=== PATIENT | male | born 1960 | race Caucasian/White ===

== ENCOUNTER 2021-05-05 11:03 | Inpatient (IN) | payer SELFPAY ==
[2021-05-05] MEDS ORDERED: Sodium Chloride 0.9% 10 ML Syringe FLUSH PRN ×2 (11:34→13:17)
[2021-05-05] MEDS ORDERED: Sodium Chloride 0.9% 1,000 ML IV ONE (11:35)
[2021-05-05] MEDS ORDERED: Ondansetron 4 MG/2 ML SDV IVPUSH ONE (11:35)
[2021-05-05] MEDS ORDERED: Dicyclomine 10 MG Cap PO ONE (11:42)
--- NOTE | 2021-05-05 12:33 | EDM.PDOC ---
ED HPI GENERAL MEDICAL PROBLEM - General Chief Complaint: Abdominal Pain Stated Complaint: VOMITING/BLOODY STOOLS/NAUSEA/ABD CRAMPS Time Seen by Provider: 05/05/21 11:11 Source of Information: Reports: Patient History Limitations: Reports: No Limitations - History of Present Illness INITIAL COMMENTS - FREE TEXT/NARRATIVE: 60-year-old male presents the emergency department today with complaints of abdominal cramping, and bloody diarrhea stools and nausea. Patient states he was at a family reunion over the weekend in [place] at a campground. Several of his family members have had similar symptoms. He states although he was at a camp site he did not drink any [place] water. He states that he suspects it was due to the hamburger that was cooked 1 evening. He states that yesterday he developed abdominal cramping throughout the day and watery diarrhea stools with lisa red blood. He also had associated nausea. He has denied any fever, chills, cough, shortness of breath, headache or sore throat. He states that throughout the night he had 4 watery stools. And today too numerous to count. He states he did go to the [facility] and they did do lab results and collect a stool sample from him. I do have some of the lab results faxed to me. WBC 12.8, hemoglobin 15.9, hematocrit 47.6, platelet count 221, neutrophil percentage 79 Documentation of stool collected at the clinic reports that it was approximately 12 cc of gross blood with no stool noted. Patient is a pack-a-day smoker for the past 45 years. He does admit to daily marijuana use however he states he has not smoked marijuana today. He denies alcohol use. Lower Abdominal Pain Score (Numeric/FACES): 5 - Related Data Allergies Allergy/AdvReac Type Severity Reaction Status Date / Time codeine Allergy Nausea Verified 05/05/21 11:21 Home Meds: Home Meds Albuterol [Proair HFA] 1 puff INH Q4HR PRN 09/05/16 [History] Fluticasone/Vilanterol [Breo Ellipta 200-25 MCG Inhalation Kit] 1 puff INH BID 09/05/16 [History] Past Medical History HEENT History: Reports: Allergic Rhinitis Cardiovascular History: Reports: Other (See Below) Other Cardiovascular History: hypotension Respiratory History: Reports: Asthma, COPD Other Respiratory History: emphysema Gastrointestinal History: Reports: Chronic Constipation Endocrine/Metabolic History: Reports: Hypothyroidism - Past Surgical History Other HEENT Surgeries/Procedures: R eye surgery GI Surgical History: Reports: Appendectomy, Hernia Repair/Other Musculoskeletal Surgical History: Reports: Shoulder Surgery Other Musculoskeletal Surgeries/Procedures:: R rotator cuff tear, carpal tunnel release Social & Family History - Tobacco Use Tobacco Use Status *Q: Current Every Day Tobacco User Years of Tobacco use: 40 Packs/Tins Daily: 1 - Recreational Drug Use Recreational Drug Use: No ED ROS GENERAL - Review of Systems Review Of Systems: Comprehensive ROS is negative, except as noted in HPI. ED EXAM, GI/ABD - Physical Exam Exam: See Below Exam Limited By: No Limitations General Appearance: Alert, WD/WN, No Apparent Distress Ears: Normal External Exam, Hearing Grossly Normal Nose: Normal Inspection Throat/Mouth: Normal Inspection, Normal Lips, Normal Voice, No Airway Compromise Head: Atraumatic Neck: Normal Inspection, Supple Respiratory/Chest: No Respiratory Distress, Lungs Clear, Normal Breath Sounds, No Accessory Muscle Use, Chest Non-Tender Cardiovascular: Normal Peripheral Pulses, Regular Rate, Rhythm, No Edema, No Murmur GI/Abdominal Exam: Normal Bowel Sounds, Soft, No Distention, Tender (Right and left lower quadrant. Left lower quadrant is more tender.) (Male) Exam: Deferred Rectal (Males) Exam: Deferred Back Exam: Normal Inspection, Full Range of Motion Extremities: Normal Inspection, Normal Range of Motion, Non-Tender, No Pedal Edema, Normal Capillary Refill Neurological: Alert, Oriented, Normal Cognition Skin Exam: Warm, Dry, Intact, Normal Color, No Rash Lymphatic: No Adenopathy Course - Vital Signs Text/Narrative:: As stated above, patient presents with 2-day history of nausea, abdominal cramping and bloody diarrhea stools. Patient was recently at a [facility] in [place] where they were camping. Several members of the family at the critical access hospital have presented with similar symptoms. I have ordered labs in addition to the labs collected this morning. CMP C-reactive protein. As stated prior stool studies were collected at the clinic in [place] and they state they will fax us the results. I do not suspect that they collected a stool for C. difficile so I will order this as well. Patient will receive a liter of normal saline, Zofran and Bentyl for abdominal cramping. Last Recorded V/S: Last Vital Signs Temp 98.5 F 05/05/21 11:17 Pulse 61 05/05/21 11:17 Resp 16 05/05/21 11:17 BP 111/59 L 05/05/21 11:17 Pulse Ox 98 05/05/21 11:17 - Orders/Labs/Meds Orders: Active Orders 24 hr Category Date Time Status C DIFFICILE PCR W/REFLEX [MOLEC] Stat Lab 05/05/21 13:35 Received STOOL CULTURE/SHIGA TOXIN [MREF] Stat Lab 05/05/21 13:35 Received UA RFX ISABELL AND CULT IF INDIC [URIN] Stat Lab 05/05/21 11:34 Ordered Lactated Ringers [Ringers, Lactated] 1,000 ml Med 05/05/21 13:30 Active IV ASDIRECTED Sodium Chloride 0.9% [Saline Flush] Med 05/05/21 11:34 Active 10 ml FLUSH ASDIRECTED PRN Sodium Chloride 0.9% [Saline Flush] Med 05/05/21 13:17 Active 10 ml FLUSH ONETIME PRN Saline Lock Insert [OM.PC] Stat Oth 05/05/21 11:34 Ordered Medication Orders Albuterol (Albuterol 6.7 Gm Inhaler) 0 gm INH Q4HR PRN PRN Reason: Shortness of Breath Heparin Sodium (Porcine) (Heparin Sodium 5,000 Units/Ml Vial) 5,000 units SUBCUT Q8H CHAPO Hydromorphone HCl (Hydromorphone 0.5 Mg/0.5 Ml Syringe) 0.5 mg IVPUSH Q1H PRN PRN Reason: Pain (severe 7-10) Lactated Ringer's (Ringers, Lactated) 1,000 mls @ 100 mls/hr IV ASDIRECTED CHAPO Last Admin: 05/05/21 13:51 Dose: 100 mls/hr Documented by: JADA Lactated Ringer's (Ringers, Lactated) 1,000 mls @ 150 mls/hr IV ASDIRECTED CHAPO Non-Formulary Medication (Fluticasone/Vilanterol) 1 puff INH BID CHAPO Ondansetron HCl (Ondansetron 4 Mg/2 Ml Sdv) 4 mg IVPUSH Q8H PRN PRN Reason: Nausea Sodium Chloride (Sodium Chloride 0.9% 10 Ml Syringe) 10 ml FLUSH ASDIRECTED PRN PRN Reason: Keep Vein Open Last Admin: 05/05/21 11:41 Dose: 10 ml Documented by: JADA Sodium Chloride (Sodium Chloride 0.9% 10 Ml Syringe) 10 ml FLUSH ONETIME PRN PRN Reason: IV FLUSH Last Admin: 05/05/21 14:15 Dose: 10 ml Documented by: BENNIE Labs: Laboratory Tests 05/05/21 05/05/21 05/05/21 Range/Units 12:25 12:40 12:40 WBC 14.24 H (4.23-9.07) K/mm3 RBC 4.43 L (4.63-6.08) M/mm3 Hgb 14.0 (13.7-17.5) gm/dl Hct 42.2 (40.1-51.0) % MCV 95.3 H (79.0-92.2) fl MCH 31.6 (25.7-32.2) pg MCHC 33.2 (32.2-35.5) g/dl RDW Std Deviation 47.2 H (35.1-43.9) fL Plt Count 213 (163-337) K/mm3 MPV 9.7 (9.4-12.3) fl Neut % (Auto) 78.5 H (34.0-67.9) % Lymph % (Auto) 11.2 L (21.8-53.1) % [place] % (Auto) 9.3 (5.3-12.2) % Eos % (Auto) 0.5 L (0.8-7.0) Baso % (Auto) 0.2 (0.1-1.2) % Neut # (Auto) 11.18 H (1.78-5.38) K/mm3 Lymph # (Auto) 1.60 (1.32-3.57) K/mm3 [place] # (Auto) 1.32 H (0.30-0.82) K/mm3 Eos # (Auto) 0.07 (0.04-0.54) K/mm3 Baso # (Auto) 0.03 (0.01-0.08) K/mm3 Manual Slide Review Abnormal smear Sodium 146 H (136-145) mEq/L Potassium 4.3 (3.5-5.1) mEq/L Chloride 110 H (98-107) mEq/L Carbon Dioxide 26 (21-32) mEq/L Anion Gap 14.3 (5-15) BUN 16 (7-18) mg/dL Creatinine 0.9 (0.7-1.3) mg/dL Est Cr Clr Drug Dosing TNP Estimated GFR (MDRD) > 60 (>60) mL/min BUN/Creatinine Ratio 17.8 (14-18) Glucose 95 (70-99) mg/dL Calcium 8.5 (8.5-10.1) mg/dL Magnesium 1.8 (1.8-2.4) mg/dL Total Bilirubin 0.7 (0.2-1.0) mg/dL AST 13 L (15-37) U/L ALT 21 (16-63) U/L Alkaline Phosphatase 95 (46-116) U/L C-Reactive Protein 2.3 H* (<1.0) mg/dL Total Protein 6.1 L (6.4-8.2) g/dl Albumin 3.4 (3.4-5.0) g/dl Globulin 2.7 gm/dL Albumin/Globulin Ratio 1.3 (1-2) SARS-CoV-2 RNA (ARETHA) Negative (NEGATIVE) Meds: Medications Generic Name Dose Route Start Last Admin Trade Name Freq PRN Reason Stop Dose Admin Albuterol 0 gm 05/05/21 15:07 Albuterol 6.7 Gm Inhaler INH Q4HR PRN Shortness of Breath Heparin Sodium (Porcine) 5,000 units 05/05/21 15:15 Heparin Sodium 5,000 Units/Ml Vial SUBCUT Q8H CHAPO Hydromorphone HCl 0.5 mg 05/05/21 15:02 Hydromorphone 0.5 Mg/0.5 Ml Syringe IVPUSH Q1H PRN Pain (severe 7-10) Lactated Ringer's 1,000 mls @ 100 mls/hr 05/05/21 13:30 05/05/21 13:51 Ringers, Lactated IV 100 mls/hr ASDIRECTED CHAPO Administration Lactated Ringer's 1,000 mls @ 150 mls/hr 05/05/21 15:15 Ringers, Lactated IV ASDIRECTED CHAPO Non-Formulary Medication 1 puff 08/05/21 21:00 Fluticasone/Vilanterol INH BID CHAPO Ondansetron HCl 4 mg 05/05/21 15:06 Ondansetron 4 Mg/2 Ml Sdv IVPUSH Q8H PRN Nausea Sodium Chloride 10 ml 05/05/21 11:34 05/05/21 11:41 Sodium Chloride 0.9% 10 Ml Syringe FLUSH 10 ml ASDIRECTED PRN Administration Keep Vein Open Sodium Chloride 10 ml 05/05/21 13:17 05/05/21 14:15 Sodium Chloride 0.9% 10 Ml Syringe FLUSH 10 ml ONETIME PRN Administration IV FLUSH Discontinued Medications Generic Name Dose Route Start Last Admin Trade Name Freq PRN Reason Stop Dose Admin Diatrizoate Meglum/Diatrizoate Sod 120 ml 05/05/21 13:17 05/05/21 14:14 Diatrizoate Meglumine/Diatrizoate Sodium 37% 120 Ml Bottle PO 05/05/21 13:18 45 ml ONETIME ONE Administration Dicyclomine HCl 10 mg 05/05/21 11:42 05/05/21 11:55 Dicyclomine 10 Mg Cap PO 05/05/21 11:43 10 mg ONETIME ONE Administration Sodium Chloride 1,000 mls @ 999 mls/hr 05/05/21 11:35 05/05/21 11:40 Normal Saline IV 05/05/21 12:35 999 mls/hr ONETIME ONE Administration Iopamidol 100 ml 05/05/21 13:17 05/05/21 14:14 Iopamidol 612 Mg/Ml 100 Ml Bottle IVPUSH 05/05/21 13:18 100 ml ONETIME ONE Administration Ondansetron HCl 4 mg 05/05/21 11:35 05/05/21 11:41 Ondansetron 4 Mg/2 Ml Sdv IVPUSH 05/05/21 11:36 4 mg ONETIME ONE Administration - Re-Assessments/Exams Free Text/Narrative Re-Assessment/Exam: 05/05/21 13:23 Hematology reveals a WBC of 14.24, hemoglobin 14.0, hematocrit 42.2, platelet count 213, neutrophil percentage 78.5 manual slide is pending Chemistry reveals a sodium of 146, potassium 4.3, chloride 110, anion gap 14.3, BUN 16, creatinine 0.9, glucose 95, magnesium 1.8, total bilirubin 0.7, AST 13, ALT 21, alk phos 95, C-reactive protein 2.3 Patient reports that his nausea and abdominal cramping have resolved. First liter of normal saline is infused. I have ordered LR at 100 mL's per hour. I will also obtain a CT of the abdomen and pelvis with contrast. 05/05/21 14:40 Covid swab is negative. 05/05/21 14:[address] of the abdomen and pelvis: Diffuse bowel wall thickening within the right colon and transverse colon. Surrounding inflammatory changes seen. Finding most likely represents rather prominent colitis. Type of colitis is not specified on the study. 2. Mild amount of free fluid within the pelvis most likely related to residual from colitis. 3. No other acute abnormality is appreciated. 05/05/21 14:48 I feel this patient does need to be admitted to the hospital as his white count is elevated and CT is showing rather prominent colitis. Stool cultures are still pending as previously stated. I have phoned the hospitalist, Dr. Hatch, and he has agreed to admit the patient into the hospital. Departure - Departure Time of Disposition: 15:27 Disposition: Admitted As Inpatient 67 Condition: Good Clinical Impression: Colitis - Discharge Information Sepsis Event Note (ED) - Evaluation Sepsis Screening Result: No Definite Risk - Focused Exam Vital Signs: Vital Signs Temp Pulse Resp BP Pulse Ox 05/05/21 11:17 98.5 F 61 16 111/59 L 98 - My Orders Last 24 Hours: My Active Orders 05/05/21 11:34 UA RFX ISABELL AND CULT IF INDIC [URIN] Stat Sodium Chloride 0.9% [Saline Flush] 10 ml FLUSH ASDIRECTED PRN Saline Lock Insert [OM.PC] Stat 05/05/21 13:17 Sodium Chloride 0.9% [Saline Flush] 10 ml FLUSH ONETIME PRN 05/05/21 13:30 Lactated Ringers [Ringers, Lactated] 1,000 ml IV ASDIRECTED 05/05/21 13:35 C DIFFICILE PCR W/REFLEX [MOLEC] Stat STOOL CULTURE/SHIGA TOXIN [MREF] Stat - Assessment/Plan Last 24 Hours: My Active Orders 05/05/21 11:34 UA RFX ISABELL AND CULT IF INDIC [URIN] Stat Sodium Chloride 0.9% [Saline Flush] 10 ml FLUSH ASDIRECTED PRN Saline Lock Insert [OM.PC] Stat 05/05/21 13:17 Sodium Chloride 0.9% [Saline Flush] 10 ml FLUSH ONETIME PRN 05/05/21 13:30 Lactated Ringers [Ringers, Lactated] 1,000 ml IV ASDIRECTED 05/05/21 13:35 C DIFFICILE PCR W/REFLEX [MOLEC] Stat STOOL CULTURE/SHIGA TOXIN [MREF] Stat
[2021-05-05] MEDS ORDERED: Iopamidol 612 MG/ML 100 ML Bottle IVPUSH ONE (13:17)
[2021-05-05] MEDS ORDERED: Diatrizoate Meglumine/Diatrizoate Sodium 37% 120 ML Bottle PO ONE (13:17)
[2021-05-05] MEDS ORDERED: Lactated Ringers 1,000 ML IV SCH (13:30)
--- NOTE | 2021-05-05 14:40 | CT ---
CT abdomen and pelvis Technique: Multiple axial sections were obtained from above the dome of the diaphragm inferiorly through the pubic symphysis. Intravenous and oral contrast were utilized. Delayed images were also obtained through the bladder. Reconstructed coronal and sagittal images were obtained. Comparison: No prior abdominal imaging is available. Findings: Visualized lung bases show nothing acute. Liver contains no focal parenchymal abnormality. Gallbladder contains no calcified gallstones. Spleen size is normal. Adrenal glands show no nodule. Pancreas is within normal limits. Kidneys show symmetric contrast enhancement. No hydronephrosis or mass is seen. Abdominal aorta shows no aneurysm. No retroperitoneal adenopathy is seen. Mild atherosclerotic change is seen. No pelvic mass or adenopathy is seen. Very minimal fluid is seen within the pelvis. Diffuse bowel wall thickening is noted within the right colon with surrounding inflammatory change. Bowel wall thickening continues into the transverse colon. Appendix is not visualized. Bone window settings were reviewed which show severe disc space narrowing at L5-S1 with vacuum phenomena. Slight vacuum phenomena is seen within the L4-5 disc. Lesser degenerative change is noted within other portions of the spine. Delayed images show contrast within the distal ureters and within the bladder. Impression: 1. Diffuse bowel wall thickening within the right colon and transverse colon. Surrounding inflammatory change is seen. Findings most likely represent rather prominent colitis. Type of colitis is not specified on the study. 2. Mild amount of free fluid within the pelvis most likely residual from the colitis. 3. No other acute abnormality is appreciated. Diagnostic code #3
[2021-05-05] MEDS ORDERED: HYDROmorphone 0.5 MG/0.5 ML Syringe IVPUSH PRN (15:02)
[2021-05-05] MEDS ORDERED: Ondansetron 4 MG/2 ML SDV IVPUSH PRN (15:06)
--- NOTE | 2021-05-05 15:26 | PCM.HP.2 ---
H&P History of Present Illness - General Date of Service: 05/05/21 Admit Problem/Dx: Admission Diagnosis/Problem Admission Diagnosis/Problem Colitis Source of Information: Patient History Limitations: Reports: No Limitations - History of Present Illness Initial Comments - Free Text/Narative: This is a 60M with PMhx noted below presenting for abdominal pain. The patient has had several family members admitted over the last two days for bloody diarrhea; with some family members testing positive for shiga toxin ecoli colitis. [facility] consumed hamburger meat. Over the last 2 days he has had crampy abdominal pain. He has had blood diarrhea. He denies fever, chest pain, sob. he endorses nausea. In the ED sepsis protocol was initiated. He was given IVF. Subsequent testing notable for C diff. CT AP showing findings consistent with diffuse colitis. Lower Abdominal Pain Score (Numeric/FACES): 5 - Related Data Allergies/Adverse Reactions: Allergies Allergy/AdvReac Type Severity Reaction Status Date / Time codeine AdvReac Nausea Verified 05/05/21 15:47 Home Medications: Home Meds Albuterol [Proair HFA] 1 puff INH Q4HR PRN 09/05/16 [History] Fluticasone/Vilanterol [Breo Ellipta 200-25 MCG Inhalation Kit] 1 puff INH BID 09/05/16 [History] Past Medical History HEENT History: Reports: Allergic Rhinitis Cardiovascular History: Reports: Other (See Below) Other Cardiovascular History: hypotension Respiratory History: Reports: Asthma, COPD Other Respiratory History: emphysema Gastrointestinal History: Reports: Chronic Constipation Endocrine/Metabolic History: Reports: Hypothyroidism - Past Surgical History Other HEENT Surgeries/Procedures: R eye surgery GI Surgical History: Reports: Appendectomy, Hernia Repair/Other Musculoskeletal Surgical History: Reports: Shoulder Surgery Other Musculoskeletal Surgeries/Procedures:: R rotator cuff tear, carpal tunnel release Social & Family History - Tobacco Use Tobacco Use Status *Q: Current Every Day Tobacco User Years of Tobacco use: 40 Packs/Tins Daily: 1 - Recreational Drug Use Recreational Drug Use: No H&P Review of Systems - Review of Systems: Review Of Systems: Comprehensive ROS is negative, except as noted in HPI. General: Reports: Weakness HEENT: Reports: No Symptoms Pulmonary: Reports: No Symptoms Cardiovascular: Reports: No Symptoms Gastrointestinal: Reports: Abdominal Pain, Bloody Stool, Diarrhea, Nausea Skin: Reports: No Symptoms Psychiatric: Reports: No Symptoms Neurological: Reports: No Symptoms Exam - Exam Exam: See Below - Vital Signs Vital Signs: Last Vital Signs Temp 98.5 F 05/05/21 11:17 Pulse 61 05/05/21 11:17 Resp 16 05/05/21 11:17 BP 111/59 L 05/05/21 11:17 Pulse Ox 98 05/05/21 11:17 - Exam General: Alert, Oriented HEENT: EOMI, Mucosa Moist & [place], Nares Patent Neck: Supple Lungs: Clear to Auscultation, Normal Respiratory Effort Cardiovascular: Regular Rate, Regular Rhythm, Normal S1, Normal S2 GI/Abdominal Exam: Soft, Non-Tender, No Distention Extremities: Normal Inspection Skin: Warm, Dry, Intact Neurological: Cranial Nerves Intact Neuro Extensive - Mental Status: Alert, Oriented x3, Normal Mood/Affect, Normal Cognition, Memory Intact Neuro Extensive - Motor, Sensory, Reflexes: CN II-XII Intact Psychiatric: Alert, Normal Affect, Normal Mood - Patient Data Lab Results Last 24 hrs: Laboratory Results - last 24 hr 05/05/21 05/05/21 05/05/21 Range/Units 12:25 12:40 12:40 WBC 14.24 H (4.23-9.07) K/mm3 RBC 4.43 L (4.63-6.08) M/mm3 Hgb 14.0 (13.7-17.5) gm/dl Hct 42.2 (40.1-51.0) % MCV 95.3 H (79.0-92.2) fl MCH 31.6 (25.7-32.2) pg MCHC 33.2 (32.2-35.5) g/dl RDW Std Deviation 47.2 H (35.1-43.9) fL Plt Count 213 (163-337) K/mm3 MPV 9.7 (9.4-12.3) fl Neut % (Auto) 78.5 H (34.0-67.9) % Lymph % (Auto) 11.2 L (21.8-53.1) % [place] % (Auto) 9.3 (5.3-12.2) % Eos % (Auto) 0.5 L (0.8-7.0) Baso % (Auto) 0.2 (0.1-1.2) % Neut # (Auto) 11.18 H (1.78-5.38) K/mm3 Lymph # (Auto) 1.60 (1.32-3.57) K/mm3 [place] # (Auto) 1.32 H (0.30-0.82) K/mm3 Eos # (Auto) 0.07 (0.04-0.54) K/mm3 Baso # (Auto) 0.03 (0.01-0.08) K/mm3 Manual Slide Review Abnormal smear Sodium 146 H (136-145) mEq/L Potassium 4.3 (3.5-5.1) mEq/L Chloride 110 H (98-107) mEq/L Carbon Dioxide 26 (21-32) mEq/L Anion Gap 14.3 (5-15) BUN 16 (7-18) mg/dL Creatinine 0.9 (0.7-1.3) mg/dL Est Cr Clr Drug Dosing TNP Estimated GFR (MDRD) > 60 (>60) mL/min BUN/Creatinine Ratio 17.8 (14-18) Glucose 95 (70-99) mg/dL Calcium 8.5 (8.5-10.1) mg/dL Magnesium 1.8 (1.8-2.4) mg/dL Total Bilirubin 0.7 (0.2-1.0) mg/dL AST 13 L (15-37) U/L ALT 21 (16-63) U/L Alkaline Phosphatase 95 (46-116) U/L C-Reactive Protein 2.3 H* (<1.0) mg/dL Total Protein 6.1 L (6.4-8.2) g/dl Albumin 3.4 (3.4-5.0) g/dl Globulin 2.7 gm/dL Albumin/Globulin Ratio 1.3 (1-2) SARS-CoV-2 RNA (ARETHA) Negative (NEGATIVE) Result Diagrams: 05/05/21 12:40 05/05/21 12:40 Imaging Impressions Last 24 hrs: CT AP diffuse colitis Sepsis Event Note - Evaluation Sepsis Screening Result: No Definite Risk - Focused Exam Vital Signs: Vital Signs Temp Pulse Resp BP Pulse Ox 05/05/21 11:17 98.5 F 61 16 111/59 L 98 Problem List Initiated/Reviewed/Updated: Yes Orders Last 24hrs: Active Orders 24 hr Category Date Time Status Admission Status [Patient Status] [ADT] Routine ADT 05/05/21 14:55 Active Cardiac Monitoring [RC] CONTINUOUS Care 05/05/21 15:02 Active Height and Weight [RC] DAILY Care 05/05/21 15:02 Active Intake and Output [RC] QSHIFT Care 05/05/21 15:02 Active Oxygen Therapy [RC] PRN Care 05/05/21 15:02 Active RT Post Treatment Assessment [RC] Click to Edit Care 05/05/21 15:07 Active RT Pre-Treatment Assessment [RC] Click to Edit Care 05/05/21 15:07 Active Up ad [place] [RC] ASDIRECTED Care 05/05/21 15:02 Active VTE/DVT Education [RC] PER UNIT ROUTINE Care 05/05/21 15:02 Active Vital Signs [RC] Q4H Care 05/05/21 15:02 Active Nothing per Oral Now Diet [DIET] Diet 05/05/21 Lunch Active C DIFFICILE PCR W/REFLEX [MOLEC] Stat Lab 05/05/21 13:35 Received CBC WITH AUTO DIFF [HEME] AM Lab 05/06/21 05:11 Ordered COMPREHENSIVE METABOLIC PN,CMP [CHEM] AM Lab 05/06/21 05:11 Ordered GI PANEL Stat Lab 05/05/21 15:04 Ordered GI VIRAL PANEL Stat Lab 05/05/21 15:04 Ordered STOOL CULTURE/SHIGA TOXIN [MREF] Stat Lab 05/05/21 13:35 Received UA RFX ISABELL AND CULT IF INDIC [URIN] Stat Lab 05/05/21 11:34 Ordered Albuterol [Proventil HFA] Med 05/05/21 15:07 Active 0 gm INH Q4HR PRN Fluticasone/Vilanterol Med 05/05/21 21:00 Active 1 puff INH BID HYDROmorphone [Dilaudid] Med 05/05/21 15:02 Active 0.5 mg IVPUSH Q1H PRN Heparin Sodium Med 05/05/21 15:15 Active 5,000 units SUBCUT Q8H Lactated Ringers [Ringers, Lactated] 1,000 ml Med 05/05/21 13:30 Active IV ASDIRECTED Lactated Ringers [Ringers, Lactated] 1,000 ml Med 05/05/21 15:15 Active IV ASDIRECTED Ondansetron [Zofran] Med 05/05/21 15:06 Active 4 mg IVPUSH Q8H PRN Sodium Chloride 0.9% [Saline Flush] Med 05/05/21 11:34 Active 10 ml FLUSH ASDIRECTED PRN Sodium Chloride 0.9% [Saline Flush] Med 05/05/21 13:17 Active 10 ml FLUSH ONETIME PRN Saline Lock Insert [OM.PC] Stat Oth 05/05/21 11:34 Ordered Medication Orders Albuterol (Albuterol 6.7 Gm Inhaler) 0 gm INH Q4HR PRN PRN Reason: Shortness of Breath Heparin Sodium (Porcine) (Heparin Sodium 5,000 Units/Ml Vial) 5,000 units SUBCUT Q8H CHAPO Hydromorphone HCl (Hydromorphone 0.5 Mg/0.5 Ml Syringe) 0.5 mg IVPUSH Q1H PRN PRN Reason: Pain (severe 7-10) Lactated Ringer's (Ringers, Lactated) 1,000 mls @ 100 mls/hr IV ASDIRECTED CHAPO Last Admin: 05/05/21 13:51 Dose: 100 mls/hr Documented by: JADA Lactated Ringer's (Ringers, Lactated) 1,000 mls @ 150 mls/hr IV ASDIRECTED [facility] Non-Formulary Medication (Fluticasone/Vilanterol) 1 puff INH BID CHAPO Ondansetron HCl (Ondansetron 4 Mg/2 Ml Sdv) 4 mg IVPUSH Q8H PRN PRN Reason: Nausea Sodium Chloride (Sodium Chloride 0.9% 10 Ml Syringe) 10 ml FLUSH ASDIRECTED PRN PRN Reason: Keep Vein Open Last Admin: 05/05/21 11:41 Dose: 10 ml Documented by: JADA Sodium Chloride (Sodium Chloride 0.9% 10 Ml Syringe) 10 ml FLUSH ONETIME PRN PRN Reason: IV FLUSH Last Admin: 05/05/21 14:15 Dose: 10 ml Documented by: BENNIE Assessment/Plan Comment:: This is a 60M with PMHx of COPD presenting with crampy abdominal pain; blood diarrhea. CT AP showing diffuse colitis; noted to have positive c diff. Assessment 1. C diff colitis 2. Hx of COPD 3. Blood diarrhea Plan -admit to inpatient -check lactic acid -start oral vanco -IVF -serial lactate -check stool culture, GI pathogen panel; stool O&P (recent camping trip) -continue [employer] inhalers Code-full DVT ppx-heparin subq - Mortality Measure Prognosis:: Good
[2021-05-05] MEDS: Vancomycin 125 MG Cap PO SCH ×2 (18:47→20:44)
[2021-05-05] MEDS: Heparin Sodium 5,000 Units/ML Vial SUBCUT SCH ×2 (18:48→22:34)
[2021-05-05] MEDS: Nicotine 14 MG/24 Hr Patch TRDERM SCH (20:45)
[2021-05-05] MEDS ORDERED: Non-Formulary Medication 1 Each (Fluticasone/Vilanterol 1 EACH Blst.W.Dev) INH SCH (21:00)
[2021-05-05] MEDS: Lactated Ringers 1,000 ML IV SCH (22:32)
[2021-05-06] MEDS: Lactated Ringers 1,000 ML IV SCH ×3 (05:19→21:00)
[2021-05-06] MEDS: Heparin Sodium 5,000 Units/ML Vial SUBCUT SCH (07:33)
[2021-05-06] MEDS: Formoterol/Mometasone 200-5 MCG 8.8 GM Inhaler IH SCH ×2 (08:08→20:16)
[2021-05-06] MEDS: Albuterol 6.7 GM Inhaler INH PRN (08:08)
[2021-05-06] MEDS: Nicotine 14 MG/24 Hr Patch TRDERM SCH (08:41)
[2021-05-06] MEDS: Vancomycin 125 MG Cap PO SCH (08:41)
--- NOTE | 2021-05-06 13:39 | PCM.PN ---
- General Info Date of Service: 05/06/21 Admission Dx/Problem (Free Text): Admission Diagnosis/Problem Admission Diagnosis/Problem Colitis Functional Status: Reports: Pain Controlled, Tolerating Diet (NPO advancing to clear liquids today ), Ambulating, Urinating. Denies: New Symptoms - Review of Systems General: Reports: No Symptoms, Weakness, Fatigue, Malaise. Denies: Fever, Chills HEENT: Reports: No Symptoms. Denies: Headaches, Sore Throat Pulmonary: Reports: Wheezing. Denies: Shortness of Breath, Cough, Sputum Cardiovascular: Reports: No Symptoms. Denies: Chest Pain, Palpitations, Dyspnea on Exertion, Edema Gastrointestinal: Reports: Abdominal Pain (generalized ), Diarrhea, Hematochezia, Nausea, Vomiting, Other (Patient reports hemorrhoids). Denies: Constipation Genitourinary: Reports: No Symptoms. Denies: Pain Musculoskeletal: Reports: No Symptoms Skin: Reports: No Symptoms. Denies: Cyanosis Neurological: Reports: No Symptoms. Denies: Confusion, Pre-Existing Deficit, Difficulty Walking, Gait Disturbance Psychiatric: Reports: No Symptoms - Patient Data Vitals - Most Recent: Last Vital Signs Temp 98.2 F 05/06/21 11:52 Pulse 56 L 05/06/21 11:52 Resp 18 05/06/21 11:52 BP 103/61 05/06/21 11:52 Pulse Ox 94 L 05/06/21 11:52 Weight - Most Recent: 150 lb 14.4 oz I&O - Last 24 Hours: Intake & Output 05/05/21 05/06/21 05/06/21 22:59 06:59 14:59 Intake Total 1400 Output Total 500 Balance 900 Lab Results Last 24 Hours: Laboratory Results - last 24 hr 05/05/21 05/05/21 05/05/21 Range/Units 12:25 13:35 13:35 WBC (4.23-9.07) K/mm3 RBC (4.63-6.08) M/mm3 Hgb (13.7-17.5) gm/dl Hct (40.1-51.0) % MCV (79.0-92.2) fl MCH (25.7-32.2) pg MCHC (32.2-35.5) g/dl RDW Std Deviation (35.1-43.9) fL Plt Count (163-337) K/mm3 MPV (9.4-12.3) fl Neut % (Auto) (34.0-67.9) % Lymph % (Auto) (21.8-53.1) % [place] % (Auto) (5.3-12.2) % Eos % (Auto) (0.8-7.0) Baso % (Auto) (0.1-1.2) % Neut # (Auto) (1.78-5.38) K/mm3 Lymph # (Auto) (1.32-3.57) K/mm3 [place] # (Auto) (0.30-0.82) K/mm3 Eos # (Auto) (0.04-0.54) K/mm3 Baso # (Auto) (0.01-0.08) K/mm3 Sodium (136-145) mEq/L Potassium (3.5-5.1) mEq/L Chloride (98-107) mEq/L Carbon Dioxide (21-32) mEq/L Anion Gap (5-15) BUN (7-18) mg/dL Creatinine (0.7-1.3) mg/dL Est Cr Clr Drug Dosing mL/min Estimated GFR (MDRD) (>60) mL/min BUN/Creatinine Ratio (14-18) Glucose (70-99) mg/dL POC Glucose (70-99) mg/dL Lactic Acid (0.4-2.0) mmol/L Calcium (8.5-10.1) mg/dL Total Bilirubin (0.2-1.0) mg/dL AST (15-37) U/L ALT (16-63) U/L Alkaline Phosphatase (46-116) U/L Total Protein (6.4-8.2) g/dl Albumin (3.4-5.0) g/dl Globulin gm/dL Albumin/Globulin Ratio (1-2) Urine Color (Yellow) Urine Appearance (Clear) Urine pH (5.0-8.0) Ur Specific [place] (1.005-1.030) Urine Protein (Negative) Urine Glucose (UA) (Negative) Urine Ketones (Negative) Urine Occult Blood (Negative) Urine Nitrite (Negative) Urine Bilirubin (Negative) Urine Urobilinogen (0.2-1.0) Ur Leukocyte Esterase (Negative) Stl C. cayetanensis PCR Not detected (Not Detected) Stool Rotavirus A PCR Not detected (Not Detected) Stool Astrovirus (PCR) Not detected (Not Detected) Stool Cryptosporidium PCR Not detected (Not Detected) St Sh/Enteroin Ecoli PCR Not detected (Not Detected) Stl Enterotoxigenic E PCR Not detected (Not Detected) Stl E. histolytica PCR Not detected (Not Detected) Stool Giardia Lamblia PCR Not detected (Not Detected) Stool Sapovirus (PCR) Not detected (Not Detected) Stl P. shigelloides PCR Not detected (Not Detected) St Y.enterocolitica PCR Not detected (Not Detected) Stool Vibrio (PCR) Not detected (Not Detected) Stl Vibrio cholerae PCR Not detected (Not Detected) Stl Enteroaggr Ecoli PCR Not detected (Not Detected) Adenovirus Types 40, 41 Not detected (Not Detected) Campylobacter (PCR) Not detected (Not Detected) C.difficile 027-NAP1-B1 Presumptive negative C. difficile Tox (PCR) Positive H C. difficile (PCR) Detected H (Not Detected) Escherichia coli 0157 Detected H (Not Detected) E.coli Shiga Toxins Detected H (Not Detected) Salmonella (PCR) Not detected (Not Detected) SARS-CoV-2 RNA (ARETHA) Negative (NEGATIVE) Stool Norovirus GI (PCR) Not detected (Not Detected) 05/05/21 05/05/21 05/05/21 Range/Units 16:16 17:46 22:15 WBC (4.23-9.07) K/mm3 RBC (4.63-6.08) M/mm3 Hgb (13.7-17.5) gm/dl Hct (40.1-51.0) % MCV (79.0-92.2) fl MCH (25.7-32.2) pg MCHC (32.2-35.5) g/dl RDW Std Deviation (35.1-43.9) fL Plt Count (163-337) K/mm3 MPV (9.4-12.3) fl Neut % (Auto) (34.0-67.9) % Lymph % (Auto) (21.8-53.1) % [place] % (Auto) (5.3-12.2) % Eos % (Auto) (0.8-7.0) Baso % (Auto) (0.1-1.2) % Neut # (Auto) (1.78-5.38) K/mm3 Lymph # (Auto) (1.32-3.57) K/mm3 [place] # (Auto) (0.30-0.82) K/mm3 Eos # (Auto) (0.04-0.54) K/mm3 Baso # (Auto) (0.01-0.08) K/mm3 Sodium (136-145) mEq/L Potassium (3.5-5.1) mEq/L Chloride (98-107) mEq/L Carbon Dioxide (21-32) mEq/L Anion Gap (5-15) BUN (7-18) mg/dL Creatinine (0.7-1.3) mg/dL Est Cr Clr Drug Dosing mL/min Estimated GFR (MDRD) (>60) mL/min BUN/Creatinine Ratio (14-18) Glucose (70-99) mg/dL POC Glucose (70-99) mg/dL Lactic Acid 0.9 0.8 (0.4-2.0) mmol/L Calcium (8.5-10.1) mg/dL Total Bilirubin (0.2-1.0) mg/dL AST (15-37) U/L ALT (16-63) U/L Alkaline Phosphatase (46-116) U/L Total Protein (6.4-8.2) g/dl Albumin (3.4-5.0) g/dl Globulin gm/dL Albumin/Globulin Ratio (1-2) Urine Color Yellow (Yellow) Urine Appearance Clear (Clear) Urine pH 5.5 (5.0-8.0) Ur Specific [place] 1.020 (1.005-1.030) Urine Protein Negative (Negative) Urine Glucose (UA) Negative (Negative) Urine Ketones 2+ H (Negative) Urine Occult Blood Negative (Negative) Urine Nitrite Negative (Negative) Urine Bilirubin Negative (Negative) Urine Urobilinogen 0.2 (0.2-1.0) Ur Leukocyte Esterase Negative (Negative) Stl C. cayetanensis PCR (Not Detected) Stool Rotavirus A PCR (Not Detected) Stool Astrovirus (PCR) (Not Detected) Stool Cryptosporidium PCR (Not Detected) St Sh/Enteroin Ecoli PCR (Not Detected) Stl Enterotoxigenic E PCR (Not Detected) Stl E. histolytica PCR (Not Detected) Stool Giardia Lamblia PCR (Not Detected) Stool Sapovirus (PCR) (Not Detected) Stl P. shigelloides PCR (Not Detected) St Y.enterocolitica PCR (Not Detected) Stool Vibrio (PCR) (Not Detected) Stl Vibrio cholerae PCR (Not Detected) Stl Enteroaggr Ecoli PCR (Not Detected) Adenovirus Types 40, 41 (Not Detected) Campylobacter (PCR) (Not Detected) C.difficile 027-NAP1-B1 C. difficile Tox (PCR) C. difficile (PCR) (Not Detected) Escherichia coli 0157 (Not Detected) E.coli Shiga Toxins (Not Detected) Salmonella (PCR) (Not Detected) SARS-CoV-2 RNA (ARETHA) (NEGATIVE) Stool Norovirus GI (PCR) (Not Detected) 05/06/21 05/06/21 05/06/21 Range/Units 00:51 05:21 05:22 WBC 13.13 H (4.23-9.07) K/mm3 RBC 4.41 L (4.63-6.08) M/mm3 Hgb 13.5 L (13.7-17.5) gm/dl Hct 42.1 (40.1-51.0) % MCV 95.5 H (79.0-92.2) fl MCH 30.6 (25.7-32.2) pg MCHC 32.1 L (32.2-35.5) g/dl RDW Std Deviation 47.1 H (35.1-43.9) fL Plt Count 216 (163-337) K/mm3 MPV 10.0 (9.4-12.3) fl Neut % (Auto) 78.3 H (34.0-67.9) % Lymph % (Auto) 13.3 L (21.8-53.1) % [place] % (Auto) 7.5 (5.3-12.2) % Eos % (Auto) 0.5 L (0.8-7.0) Baso % (Auto) 0.2 (0.1-1.2) % Neut # (Auto) 10.29 H (1.78-5.38) K/mm3 Lymph # (Auto) 1.75 (1.32-3.57) K/mm3 [place] # (Auto) 0.99 H (0.30-0.82) K/mm3 Eos # (Auto) 0.06 (0.04-0.54) K/mm3 Baso # (Auto) 0.02 (0.01-0.08) K/mm3 Sodium (136-145) mEq/L Potassium (3.5-5.1) mEq/L Chloride (98-107) mEq/L Carbon Dioxide (21-32) mEq/L Anion Gap (5-15) BUN (7-18) mg/dL Creatinine (0.7-1.3) mg/dL Est Cr Clr Drug Dosing mL/min Estimated GFR (MDRD) (>60) mL/min BUN/Creatinine Ratio (14-18) Glucose (70-99) mg/dL POC Glucose 88 86 (70-99) mg/dL Lactic Acid (0.4-2.0) mmol/L Calcium (8.5-10.1) mg/dL Total Bilirubin (0.2-1.0) mg/dL AST (15-37) U/L ALT (16-63) U/L Alkaline Phosphatase (46-116) U/L Total Protein (6.4-8.2) g/dl Albumin (3.4-5.0) g/dl Globulin gm/dL Albumin/Globulin Ratio (1-2) Urine Color (Yellow) Urine Appearance (Clear) Urine pH (5.0-8.0) Ur Specific [place] (1.005-1.030) Urine Protein (Negative) Urine Glucose (UA) (Negative) Urine Ketones (Negative) Urine Occult Blood (Negative) Urine Nitrite (Negative) Urine Bilirubin (Negative) Urine Urobilinogen (0.2-1.0) Ur Leukocyte Esterase (Negative) Stl C. cayetanensis PCR (Not Detected) Stool Rotavirus A PCR (Not Detected) Stool Astrovirus (PCR) (Not Detected) Stool Cryptosporidium PCR (Not Detected) St Sh/Enteroin Ecoli PCR (Not Detected) Stl Enterotoxigenic E PCR (Not Detected) Stl E. histolytica PCR (Not Detected) Stool Giardia Lamblia PCR (Not Detected) Stool Sapovirus (PCR) (Not Detected) Stl P. shigelloides PCR (Not Detected) St Y.enterocolitica PCR (Not Detected) Stool Vibrio (PCR) (Not Detected) Stl Vibrio cholerae PCR (Not Detected) Stl Enteroaggr Ecoli PCR (Not Detected) Adenovirus Types 40, 41 (Not Detected) Campylobacter (PCR) (Not Detected) C.difficile 027-NAP1-B1 C. difficile Tox (PCR) C. difficile (PCR) (Not Detected) Escherichia coli 0157 (Not Detected) E.coli Shiga Toxins (Not Detected) Salmonella (PCR) (Not Detected) SARS-CoV-2 RNA (ARETHA) (NEGATIVE) Stool Norovirus GI (PCR) (Not Detected) 05/06/21 Range/Units 05:22 WBC (4.23-9.07) K/mm3 RBC (4.63-6.08) M/mm3 Hgb (13.7-17.5) gm/dl Hct (40.1-51.0) % MCV (79.0-92.2) fl MCH (25.7-32.2) pg MCHC (32.2-35.5) g/dl RDW Std Deviation (35.1-43.9) fL Plt Count (163-337) K/mm3 MPV (9.4-12.3) fl Neut % (Auto) (34.0-67.9) % Lymph % (Auto) (21.8-53.1) % [place] % (Auto) (5.3-12.2) % Eos % (Auto) (0.8-7.0) Baso % (Auto) (0.1-1.2) % Neut # (Auto) (1.78-5.38) K/mm3 Lymph # (Auto) (1.32-3.57) K/mm3 [place] # (Auto) (0.30-0.82) K/mm3 Eos # (Auto) (0.04-0.54) K/mm3 Baso # (Auto) (0.01-0.08) K/mm3 Sodium 146 H (136-145) mEq/L Potassium 4.0 (3.5-5.1) mEq/L Chloride 110 H (98-107) mEq/L Carbon Dioxide 25 (21-32) mEq/L Anion Gap 15.0 (5-15) BUN 13 (7-18) mg/dL Creatinine 0.9 (0.7-1.3) mg/dL Est Cr Clr Drug Dosing 85.56 mL/min Estimated GFR (MDRD) > 60 (>60) mL/min BUN/Creatinine Ratio 14.4 (14-18) Glucose 91 (70-99) mg/dL POC Glucose (70-99) mg/dL Lactic Acid (0.4-2.0) mmol/L Calcium 8.4 L (8.5-10.1) mg/dL Total Bilirubin 0.7 (0.2-1.0) mg/dL AST 11 L (15-37) U/L ALT 19 (16-63) U/L Alkaline Phosphatase 87 (46-116) U/L Total Protein 6.0 L (6.4-8.2) g/dl Albumin 3.1 L (3.4-5.0) g/dl Globulin 2.9 gm/dL Albumin/Globulin Ratio 1.1 (1-2) Urine Color (Yellow) Urine Appearance (Clear) Urine pH (5.0-8.0) Ur Specific [place] (1.005-1.030) Urine Protein (Negative) Urine Glucose (UA) (Negative) Urine Ketones (Negative) Urine Occult Blood (Negative) Urine Nitrite (Negative) Urine Bilirubin (Negative) Urine Urobilinogen (0.2-1.0) Ur Leukocyte Esterase (Negative) Stl C. cayetanensis PCR (Not Detected) Stool Rotavirus A PCR (Not Detected) Stool Astrovirus (PCR) (Not Detected) Stool Cryptosporidium PCR (Not Detected) St Sh/Enteroin Ecoli PCR (Not Detected) Stl Enterotoxigenic E PCR (Not Detected) Stl E. histolytica PCR (Not Detected) Stool Giardia Lamblia PCR (Not Detected) Stool Sapovirus (PCR) (Not Detected) Stl P. shigelloides PCR (Not Detected) St Y.enterocolitica PCR (Not Detected) Stool Vibrio (PCR) (Not Detected) Stl Vibrio cholerae PCR (Not Detected) Stl Enteroaggr Ecoli PCR (Not Detected) Adenovirus Types 40, 41 (Not Detected) Campylobacter (PCR) (Not Detected) C.difficile 027-NAP1-B1 C. difficile Tox (PCR) C. difficile (PCR) (Not Detected) Escherichia coli 0157 (Not Detected) E.coli Shiga Toxins (Not Detected) Salmonella (PCR) (Not Detected) SARS-CoV-2 RNA (ARETHA) (NEGATIVE) Stool Norovirus GI (PCR) (Not Detected) [facility] Results Last 24 Hours: Microbiology 05/05/21 13:35 Clostridioides difficile Toxin Assay - Final Stool / Feces 05/05/21 13:35 Shiga Toxin I & II - Final Stool / Feces Med Orders - Current: Current Medications Albuterol (Albuterol 6.7 Gm Inhaler) 0 gm INH Q4HR PRN PRN Reason: Shortness of Breath Last Admin: 05/06/21 08:08 Dose: 2 puff Documented by: Heparin Sodium (Porcine) (Heparin Sodium 5,000 Units/Ml Vial) 5,000 units SUBCUT Q8H [facility] Last Admin: 05/06/21 07:33 Dose: 5,000 units Documented by: Hydromorphone HCl (Hydromorphone 0.5 Mg/0.5 Ml Syringe) 0.5 mg IVPUSH Q1H PRN PRN Reason: Pain (severe 7-10) Lactated Ringer's (Ringers, Lactated) 1,000 mls @ 150 mls/hr IV ASDIRECTED [facility] Last Admin: 05/06/21 13:20 Dose: 150 mls/hr Documented by: Miscellaneous Information (Remove Nicotine Patch) 1 ea TRDERM DAILY [facility] Last Admin: 05/06/21 08:41 Dose: Not Given Documented by: Mometasone Furoate/Formoterol Fumar (Formoterol/Mometasone 200-5 Mcg 8.8 Gm Inhaler) 2 puff IH BID [facility] Last Admin: 05/06/21 08:08 Dose: 2 puff Documented by: Nicotine (Nicotine 14 Mg/24 Hr Patch) 14 mg TRDERM DAILY [facility] Last Admin: 05/06/21 08:41 Dose: Not Given Documented by: Ondansetron HCl (Ondansetron 4 Mg/2 Ml Sdv) 4 mg IVPUSH Q8H PRN PRN Reason: Nausea Sodium Chloride (Sodium Chloride 0.9% 10 Ml Syringe) 10 ml FLUSH ASDIRECTED PRN PRN Reason: Keep Vein Open Last Admin: 05/05/21 11:41 Dose: 10 ml Documented by: Discontinued Medications Diatrizoate Meglum/Diatrizoate Sod (Diatrizoate Meglumine/Diatrizoate Sodium 37% 120 Ml Bottle) 120 ml PO ONETIME ONE Stop: 05/05/21 13:18 Last Admin: 05/05/21 14:14 Dose: 45 ml Documented by: Dicyclomine HCl (Dicyclomine 10 Mg Cap) 10 mg PO ONETIME ONE Stop: 05/05/21 11:43 Last Admin: 05/05/21 11:55 Dose: 10 mg Documented by: Sodium Chloride (Normal Saline) 1,000 mls @ 999 mls/hr IV ONETIME ONE Stop: 05/05/21 12:35 Last Admin: 05/05/21 11:40 Dose: 999 mls/hr Documented by: Lactated Ringer's (Ringers, Lactated) 1,000 mls @ 100 mls/hr IV ASDIRECTED [facility] Last Admin: 05/05/21 13:51 Dose: 100 mls/hr Documented by: Iopamidol (Iopamidol 612 Mg/Ml 100 Ml Bottle) 100 ml IVPUSH ONETIME ONE Stop: 05/05/21 13:18 Last Admin: 05/05/21 14:14 Dose: 100 ml Documented by: Non-Formulary Medication (Fluticasone/Vilanterol) 1 puff INH BID [facility] Last Admin: 05/05/21 20:45 Dose: 1 puff Documented by: Ondansetron HCl (Ondansetron 4 Mg/2 Ml Sdv) 4 mg IVPUSH ONETIME ONE Stop: 05/05/21 11:36 Last Admin: 05/05/21 11:41 Dose: 4 mg Documented by: Sodium Chloride (Sodium Chloride 0.9% 10 Ml Syringe) 10 ml FLUSH ONETIME PRN PRN Reason: IV FLUSH Last Admin: 05/05/21 14:15 Dose: 10 ml Documented by: Vancomycin HCl (Vancomycin 125 Mg Cap) 125 mg PO QID [facility] Last Admin: 05/06/21 08:41 Dose: 125 mg Documented by: - Exam Quality Assessment: DVT Prophylaxis. No: Supplemental Oxygen, Urine Catheter General: Alert, Oriented, Cooperative, No Acute Distress HEENT: Pupils Equal, Pupils Reactive, Mucous Membr. Moist/[place] Neck: Supple, Trachea Midline Lungs: Normal Respiratory Effort, Wheezing Cardiovascular: Regular Rate, Regular Rhythm GI/Abdominal Exam: Normal Bowel Sounds, Soft, No Distention, Tender (Generalized ), Other (Patient reports hemorrhoidal pain and itching.) (Male) Exam: Deferred Back Exam: Normal Inspection, Full Range of Motion Extremities: Normal Inspection, Normal Range of Motion, Non-Tender, No Pedal Edema, Normal Capillary Refill Peripheral Pulses: 2+: Radial (L), Radial (R), Dorsalis Pedis (L), Dorsalis Pedis (R) Skin: Warm, Dry, Intact Neurological: No New Focal Deficit Psy/Mental Status: Alert, Normal Affect, Normal Mood - Patient Data Lab Results Last 24 hrs: Laboratory Results - last 24 hr 05/05/21 05/05/21 05/05/21 Range/Units 12:25 13:35 13:35 WBC (4.23-9.07) K/mm3 RBC (4.63-6.08) M/mm3 Hgb (13.7-17.5) gm/dl Hct (40.1-51.0) % MCV (79.0-92.2) fl MCH (25.7-32.2) pg MCHC (32.2-35.5) g/dl RDW Std Deviation (35.1-43.9) fL Plt Count (163-337) K/mm3 MPV (9.4-12.3) fl Neut % (Auto) (34.0-67.9) % Lymph % (Auto) (21.8-53.1) % [place] % (Auto) (5.3-12.2) % Eos % (Auto) (0.8-7.0) Baso % (Auto) (0.1-1.2) % Neut # (Auto) (1.78-5.38) K/mm3 Lymph # (Auto) (1.32-3.57) K/mm3 [place] # (Auto) (0.30-0.82) K/mm3 Eos # (Auto) (0.04-0.54) K/mm3 Baso # (Auto) (0.01-0.08) K/mm3 Sodium (136-145) mEq/L Potassium (3.5-5.1) mEq/L Chloride (98-107) mEq/L Carbon Dioxide (21-32) mEq/L Anion Gap (5-15) BUN (7-18) mg/dL Creatinine (0.7-1.3) mg/dL Est Cr Clr Drug Dosing mL/min Estimated GFR (MDRD) (>60) mL/min BUN/Creatinine Ratio (14-18) Glucose (70-99) mg/dL POC Glucose (70-99) mg/dL Lactic Acid (0.4-2.0) mmol/L Calcium (8.5-10.1) mg/dL Total Bilirubin (0.2-1.0) mg/dL AST (15-37) U/L ALT (16-63) U/L Alkaline Phosphatase (46-116) U/L Total Protein (6.4-8.2) g/dl Albumin (3.4-5.0) g/dl Globulin gm/dL Albumin/Globulin Ratio (1-2) Urine Color (Yellow) Urine Appearance (Clear) Urine pH (5.0-8.0) Ur Specific [place] (1.005-1.030) Urine Protein (Negative) Urine Glucose (UA) (Negative) Urine Ketones (Negative) Urine Occult Blood (Negative) Urine Nitrite (Negative) Urine Bilirubin (Negative) Urine Urobilinogen (0.2-1.0) Ur Leukocyte Esterase (Negative) Stl C. cayetanensis PCR Not detected (Not Detected) Stool Rotavirus A PCR Not detected (Not Detected) Stool Astrovirus (PCR) Not detected (Not Detected) Stool Cryptosporidium PCR Not detected (Not Detected) St Sh/Enteroin Ecoli PCR Not detected (Not Detected) Stl Enterotoxigenic E PCR Not detected (Not Detected) Stl E. histolytica PCR Not detected (Not Detected) Stool Giardia Lamblia PCR Not detected (Not Detected) Stool Sapovirus (PCR) Not detected (Not Detected) Stl P. shigelloides PCR Not detected (Not Detected) St Y.enterocolitica PCR Not detected (Not Detected) Stool Vibrio (PCR) Not detected (Not Detected) Stl Vibrio cholerae PCR Not detected (Not Detected) Stl Enteroaggr Ecoli PCR Not detected (Not Detected) Adenovirus Types 40, 41 Not detected (Not Detected) Campylobacter (PCR) Not detected (Not Detected) C.difficile 027-NAP1-B1 Presumptive negative C. difficile Tox (PCR) Positive H C. difficile (PCR) Detected H (Not Detected) Escherichia coli 0157 Detected H (Not Detected) E.coli Shiga Toxins Detected H (Not Detected) Salmonella (PCR) Not detected (Not Detected) SARS-CoV-2 RNA (ARETHA) Negative (NEGATIVE) Stool Norovirus GI (PCR) Not detected (Not Detected) 05/05/21 05/05/21 05/05/21 Range/Units 16:16 17:46 22:15 WBC (4.23-9.07) K/mm3 RBC (4.63-6.08) M/mm3 Hgb (13.7-17.5) gm/dl Hct (40.1-51.0) % MCV (79.0-92.2) fl MCH (25.7-32.2) pg MCHC (32.2-35.5) g/dl RDW Std Deviation (35.1-43.9) fL Plt Count (163-337) K/mm3 MPV (9.4-12.3) fl Neut % (Auto) (34.0-67.9) % Lymph % (Auto) (21.8-53.1) % [place] % (Auto) (5.3-12.2) % Eos % (Auto) (0.8-7.0) Baso % (Auto) (0.1-1.2) % Neut # (Auto) (1.78-5.38) K/mm3 Lymph # (Auto) (1.32-3.57) K/mm3 [place] # (Auto) (0.30-0.82) K/mm3 Eos # (Auto) (0.04-0.54) K/mm3 Baso # (Auto) (0.01-0.08) K/mm3 Sodium (136-145) mEq/L Potassium (3.5-5.1) mEq/L Chloride (98-107) mEq/L Carbon Dioxide (21-32) mEq/L Anion Gap (5-15) BUN (7-18) mg/dL Creatinine (0.7-1.3) mg/dL Est Cr Clr Drug Dosing mL/min Estimated GFR (MDRD) (>60) mL/min BUN/Creatinine Ratio (14-18) Glucose (70-99) mg/dL POC Glucose (70-99) mg/dL Lactic Acid 0.9 0.8 (0.4-2.0) mmol/L Calcium (8.5-10.1) mg/dL Total Bilirubin (0.2-1.0) mg/dL AST (15-37) U/L ALT (16-63) U/L Alkaline Phosphatase (46-116) U/L Total Protein (6.4-8.2) g/dl Albumin (3.4-5.0) g/dl Globulin gm/dL Albumin/Globulin Ratio (1-2) Urine Color Yellow (Yellow) Urine Appearance Clear (Clear) Urine pH 5.5 (5.0-8.0) Ur Specific [place] 1.020 (1.005-1.030) Urine Protein Negative (Negative) Urine Glucose (UA) Negative (Negative) Urine Ketones 2+ H (Negative) Urine Occult Blood Negative (Negative) Urine Nitrite Negative (Negative) Urine Bilirubin Negative (Negative) Urine Urobilinogen 0.2 (0.2-1.0) Ur Leukocyte Esterase Negative (Negative) Stl C. cayetanensis PCR (Not Detected) Stool Rotavirus A PCR (Not Detected) Stool Astrovirus (PCR) (Not Detected) Stool Cryptosporidium PCR (Not Detected) St Sh/Enteroin Ecoli PCR (Not Detected) Stl Enterotoxigenic E PCR (Not Detected) Stl E. histolytica PCR (Not Detected) Stool Giardia Lamblia PCR (Not Detected) Stool Sapovirus (PCR) (Not Detected) Stl P. shigelloides PCR (Not Detected) St Y.enterocolitica PCR (Not Detected) Stool Vibrio (PCR) (Not Detected) Stl Vibrio cholerae PCR (Not Detected) Stl Enteroaggr Ecoli PCR (Not Detected) Adenovirus Types 40, 41 (Not Detected) Campylobacter (PCR) (Not Detected) C.difficile 027-NAP1-B1 C. difficile Tox (PCR) C. difficile (PCR) (Not Detected) Escherichia coli 0157 (Not Detected) E.coli Shiga Toxins (Not Detected) Salmonella (PCR) (Not Detected) SARS-CoV-2 RNA (ARETHA) (NEGATIVE) Stool Norovirus GI (PCR) (Not Detected) 05/06/21 05/06/21 05/06/21 Range/Units 00:51 05:21 05:22 WBC 13.13 H (4.23-9.07) K/mm3 RBC 4.41 L (4.63-6.08) M/mm3 Hgb 13.5 L (13.7-17.5) gm/dl Hct 42.1 (40.1-51.0) % MCV 95.5 H (79.0-92.2) fl MCH 30.6 (25.7-32.2) pg MCHC 32.1 L (32.2-35.5) g/dl RDW Std Deviation 47.1 H (35.1-43.9) fL Plt Count 216 (163-337) K/mm3 MPV 10.0 (9.4-12.3) fl Neut % (Auto) 78.3 H (34.0-67.9) % Lymph % (Auto) 13.3 L (21.8-53.1) % Tyler % (Auto) 7.5 (5.3-12.2) % Eos % (Auto) 0.5 L (0.8-7.0) Baso % (Auto) 0.2 (0.1-1.2) % Neut # (Auto) 10.29 H (1.78-5.38) K/mm3 Lymph # (Auto) 1.75 (1.32-3.57) K/mm3 Tyler # (Auto) 0.99 H (0.30-0.82) K/mm3 Eos # (Auto) 0.06 (0.04-0.54) K/mm3 Baso # (Auto) 0.02 (0.01-0.08) K/mm3 Sodium (136-145) mEq/L Potassium (3.5-5.1) mEq/L Chloride (98-107) mEq/L Carbon Dioxide (21-32) mEq/L Anion Gap (5-15) BUN (7-18) mg/dL Creatinine (0.7-1.3) mg/dL Est Cr Clr Drug Dosing mL/min Estimated GFR (MDRD) (>60) mL/min BUN/Creatinine Ratio (14-18) Glucose (70-99) mg/dL POC Glucose 88 86 (70-99) mg/dL Lactic Acid (0.4-2.0) mmol/L Calcium (8.5-10.1) mg/dL Total Bilirubin (0.2-1.0) mg/dL AST (15-37) U/L ALT (16-63) U/L Alkaline Phosphatase (46-116) U/L Total Protein (6.4-8.2) g/dl Albumin (3.4-5.0) g/dl Globulin gm/dL Albumin/Globulin Ratio (1-2) Urine Color (Yellow) Urine Appearance (Clear) Urine pH (5.0-8.0) Ur Specific [place] (1.005-1.030) Urine Protein (Negative) Urine Glucose (UA) (Negative) Urine Ketones (Negative) Urine Occult Blood (Negative) Urine Nitrite (Negative) Urine Bilirubin (Negative) Urine Urobilinogen (0.2-1.0) Ur Leukocyte Esterase (Negative) Stl C. cayetanensis PCR (Not Detected) Stool Rotavirus A PCR (Not Detected) Stool Astrovirus (PCR) (Not Detected) Stool Cryptosporidium PCR (Not Detected) St Sh/Enteroin Ecoli PCR (Not Detected) Stl Enterotoxigenic E PCR (Not Detected) Stl E. histolytica PCR (Not Detected) Stool Giardia Lamblia PCR (Not Detected) Stool Sapovirus (PCR) (Not Detected) Stl P. shigelloides PCR (Not Detected) St Y.enterocolitica PCR (Not Detected) Stool Vibrio (PCR) (Not Detected) Stl Vibrio cholerae PCR (Not Detected) Stl Enteroaggr Ecoli PCR (Not Detected) Adenovirus Types 40, 41 (Not Detected) Campylobacter (PCR) (Not Detected) C.difficile 027-NAP1-B1 C. difficile Tox (PCR) C. difficile (PCR) (Not Detected) Escherichia coli 0157 (Not Detected) E.coli Shiga Toxins (Not Detected) Salmonella (PCR) (Not Detected) SARS-CoV-2 RNA (ARETHA) (NEGATIVE) Stool Norovirus GI (PCR) (Not Detected) 05/06/21 Range/Units 05:22 WBC (4.23-9.07) K/mm3 RBC (4.63-6.08) M/mm3 Hgb (13.7-17.5) gm/dl Hct (40.1-51.0) % MCV (79.0-92.2) fl MCH (25.7-32.2) pg MCHC (32.2-35.5) g/dl RDW Std Deviation (35.1-43.9) fL Plt Count (163-337) K/mm3 MPV (9.4-12.3) fl Neut % (Auto) (34.0-67.9) % Lymph % (Auto) (21.8-53.1) % [place] % (Auto) (5.3-12.2) % Eos % (Auto) (0.8-7.0) Baso % (Auto) (0.1-1.2) % Neut # (Auto) (1.78-5.38) K/mm3 Lymph # (Auto) (1.32-3.57) K/mm3 [place] # (Auto) (0.30-0.82) K/mm3 Eos # (Auto) (0.04-0.54) K/mm3 Baso # (Auto) (0.01-0.08) K/mm3 Sodium 146 H (136-145) mEq/L Potassium 4.0 (3.5-5.1) mEq/L Chloride 110 H (98-107) mEq/L Carbon Dioxide 25 (21-32) mEq/L Anion Gap 15.0 (5-15) BUN 13 (7-18) mg/dL Creatinine 0.9 (0.7-1.3) mg/dL Est Cr Clr Drug Dosing 85.56 mL/min Estimated GFR (MDRD) > 60 (>60) mL/min BUN/Creatinine Ratio 14.4 (14-18) Glucose 91 (70-99) mg/dL POC Glucose (70-99) mg/dL Lactic Acid (0.4-2.0) mmol/L Calcium 8.4 L (8.5-10.1) mg/dL Total Bilirubin 0.7 (0.2-1.0) mg/dL AST 11 L (15-37) U/L ALT 19 (16-63) U/L Alkaline Phosphatase 87 (46-116) U/L Total Protein 6.0 L (6.4-8.2) g/dl Albumin 3.1 L (3.4-5.0) g/dl Globulin 2.9 gm/dL Albumin/Globulin Ratio 1.1 (1-2) Urine Color (Yellow) Urine Appearance (Clear) Urine pH (5.0-8.0) Ur Specific [place] (1.005-1.030) Urine Protein (Negative) Urine Glucose (UA) (Negative) Urine Ketones (Negative) Urine Occult Blood (Negative) Urine Nitrite (Negative) Urine Bilirubin (Negative) Urine Urobilinogen (0.2-1.0) Ur Leukocyte Esterase (Negative) Stl C. cayetanensis PCR (Not Detected) Stool Rotavirus A PCR (Not Detected) Stool Astrovirus (PCR) (Not Detected) Stool Cryptosporidium PCR (Not Detected) St Sh/Enteroin Ecoli PCR (Not Detected) Stl Enterotoxigenic E PCR (Not Detected) Stl E. histolytica PCR (Not Detected) Stool Giardia Lamblia PCR (Not Detected) Stool Sapovirus (PCR) (Not Detected) Stl P. shigelloides PCR (Not Detected) St Y.enterocolitica PCR (Not Detected) Stool Vibrio (PCR) (Not Detected) Stl Vibrio cholerae PCR (Not Detected) Stl Enteroaggr Ecoli PCR (Not Detected) Adenovirus Types 40, 41 (Not Detected) Campylobacter (PCR) (Not Detected) C.difficile [id number]-[id number] C. difficile Tox (PCR) C. difficile (PCR) (Not Detected) Escherichia coli 0157 (Not Detected) E.coli Shiga Toxins (Not Detected) Salmonella (PCR) (Not Detected) SARS-CoV-2 RNA (ARETHA) (NEGATIVE) Stool Norovirus GI (PCR) (Not Detected) Result Diagrams: 05/06/21 05:22 05/06/21 05:22 Morteza Results Last 24 hrs: Microbiology 05/05/21 13:35 Clostridioides difficile Toxin Assay - Final Stool / Feces 05/05/21 13:35 Shiga Toxin I & II - Final Stool / Feces Sepsis Event Note - Evaluation Sepsis Screening Result: No Definite Risk - Focused Exam Vital Signs: Vital Signs Temp Pulse Resp BP Pulse Ox Pulse Ox 05/06/21 11:52 98.2 F 56 L 18 103/61 94 L 05/06/21 08:08 91 L 05/06/21 08:04 98.1 F 49 L 18 95/58 L 91 L 05/06/21 03:57 98.4 F 64 16 106/73 92 L - Problem List & Annotations (1) History of COPD SNOMED Code(s): 735917961 Code(s): Z87.09 - PERSONAL HISTORY OF OTHER DISEASES OF THE RESPIRATORY SYSTEM Status: Chronic Priority: Low Current Visit: No (2) Bloody diarrhea SNOMED Code(s): 26664697 Code(s): R19.7 - DIARRHEA, UNSPECIFIED Status: Acute Priority: High Current Visit: Yes (3) Clostridium difficile carrier SNOMED Code(s): 682581982 Code(s): Z22.1 - CARRIER OF OTHER INTESTINAL INFECTIOUS DISEASES Status: Acute Priority: Low Current Visit: Yes (4) Infection due to Escherichia coli serogroup O157 SNOMED Code(s): 230932681090268 Code(s): A49.8 - OTHER BACTERIAL INFECTIONS OF UNSPECIFIED SITE Status: Acute Priority: High Current Visit: Yes (5) Colitis SNOMED Code(s): 61704654 Code(s): K52.9 - NONINFECTIVE GASTROENTERITIS AND COLITIS, UNSPECIFIED Status: Acute Priority: High Current Visit: Yes (6) Hypotension SNOMED Code(s): 13567153 Code(s): I95.9 - HYPOTENSION, UNSPECIFIED Status: Chronic Priority: Low Current Visit: No Qualifiers: Hypotension type: unspecified hypotension type Qualified Code(s): I95.9 - Hypotension, unspecified (7) Hypothyroidism SNOMED Code(s): 92844536 Code(s): E03.9 - HYPOTHYROIDISM, UNSPECIFIED Status: Chronic Priority: Low Current Visit: No Qualifiers: Hypothyroidism type: unspecified Qualified Code(s): E03.9 - Hypothyroidism, unspecified (8) Asthma SNOMED Code(s): 747724307 Code(s): J45.909 - UNSPECIFIED ASTHMA, UNCOMPLICATED Status: Chronic Priority: Medium Current Visit: No Qualifiers: Asthma severity: unspecified severity Asthma persistence: unspecified Asthma complication type: unspecified Qualified Code(s): J45.909 - Unspecified asthma, uncomplicated (9) Chronic constipation SNOMED Code(s): 485354779 Code(s): K59.09 - OTHER CONSTIPATION Status: Chronic Priority: Low Current Visit: No (10) Emphysema of lung SNOMED Code(s): 70001416 Code(s): J43.9 - EMPHYSEMA, UNSPECIFIED Status: Chronic Priority: Medium Current Visit: No Qualifiers: Emphysema type: unspecified Qualified Code(s): J43.9 - Emphysema, unspecified (11) Current smoker SNOMED Code(s): 04778910 Code(s): F17.200 - NICOTINE DEPENDENCE, UNSPECIFIED, UNCOMPLICATED Status: Chronic Priority: Medium Current Visit: Yes (12) Leukocytosis SNOMED Code(s): 923945910, 014767752 Code(s): D72.829 - ELEVATED WHITE BLOOD CELL COUNT, UNSPECIFIED Status: Acute Priority: High Current Visit: Yes Qualifiers: Leukocytosis type: unspecified Qualified Code(s): D72.829 - Elevated white blood cell count, unspecified (13) Hemorrhoids SNOMED Code(s): 02342110 Code(s): K64.9 - UNSPECIFIED HEMORRHOIDS Status: Chronic Priority: Medium Current Visit: Yes Qualifiers: Hemorrhoid type: unspecified Qualified Code(s): K64.9 - Unspecified hemorrhoids - Problem List Review Problem List Initiated/Reviewed/Updated: Yes - My Orders Last 24 Hours: My Active Orders 05/05/21 16:08 Isolation [COMM] Routine 05/06/21 Lunch Clear Liquid Diet [DIET] 05/07/21 05:11 BASIC METABOLIC PANEL,BMP [CHEM] AM CBC WITH AUTO DIFF [HEME] AM MAGNESIUM [CHEM] AM 05/08/21 05:11 BASIC METABOLIC PANEL,BMP [CHEM] AM CBC WITH AUTO DIFF [HEME] AM MAGNESIUM [CHEM] AM 05/09/21 05:11 BASIC METABOLIC PANEL,BMP [CHEM] AM CBC WITH AUTO DIFF [HEME] AM MAGNESIUM [CHEM] AM 05/10/21 05:11 BASIC METABOLIC PANEL,BMP [CHEM] AM CBC WITH AUTO DIFF [HEME] AM MAGNESIUM [CHEM] AM - Assessment Assessment:: Assessment - day of admission 05/05/2021 This is a 60M with PMHx of COPD presenting with crampy abdominal pain; blood diarrhea. CT AP showing diffuse colitis; noted to have positive c diff. Assessment 1. C diff colitis 2. Hx of COPD 3. Blood diarrhea Plan -admit to inpatient -check lactic acid -start oral vanco -IVF -serial lactate -check stool culture, GI pathogen panel; stool O&P (recent camping trip) -continue [employer] inhalers Code-full DVT ppx-heparin subq 05/06/2021 This is a 60-year-old male who presents to ED on 05/05/2021 with vomiting, bloody stools, nausea, and abdominal cramps. Patient was on a trip to [place] for a family vacation in which several family members have since fallen ill with E. coli 0157. Several family members are also hospitalized here. Patient reports abdominal cramping that started on this past 05/04/2021. This progress ed to watery diarrhea and lisa bloody stools. He was also complaining of nausea but denies any infectious symptoms such as fever, chills, cough, shortness of breath, headache, sore throat. Patient went to the clinic in [place] where a stool sample was obtained but showed 12 cc of gross blood and no stool was noted. He is a pack-a-day smoker for 45 years and also reportedly smokes occasional marijuana. Patient was admitted to the floor on telemetry and this will be discontinued today as patient has been very stable. Initially C. difficile screen was positive and patient was started on oral vancomycin. Stool culture has not shown any C. difficile infection and this will be discontinued. It is likely that the patient is a carrier but does not have an active C. difficile infection. Stool culture has however returned positive for E. coli 0157 which is a Shiga toxin producing E. coli. We will therefore discontinue all antibiotics. Patient has been receiving IV fluids and these will continue. Pain medications as ordered. Patient reports improving bloody diarrhea which has since become more yellow in nature. States he feels quite a bit better but is still having mild abdominal pain. We will therefore advance diet to clear liquids as the patient tolerates. Labs today show WBC of 13.13. Hemoglobin 13.5. Platelet 216,000. Neutrophils are elevated at 70.3%. Sodium is slightly elevated at 146. Potassium 4.0. Carbon dioxide 25. Anion gap is 15.0. BUN is 13. Creatinine 0.9. GFR greater than 60. Glucose is 91. Calcium 8.4. Bilirubin 0.7. AST is 11, ALT 19, alkaline phosphatase 87. Protein 6.0. Albumin 3.1. We will continue current treatment and advance diet as tolerated. Patient also complaining of significant hemorrhoids which are chronic for him but have been worse with his bloody diarrhea. Will order as needed Tucks pads and as needed hydrocortisone cream for this. Length of stay likely 1-2 more days pending symptom improvement. - Plan Plan:: Leukocytosis Bloody diarrhea Clostridium difficile carrier Infection due to Escherichia coli serogroup O157 Colitis * Discontinue PO vancomycin based of of stool culture * IV fluids as ordered * Advance to clear liquid diet today * Pain medications as ordered * Antiemetics as ordered * Enteric isolation * Monitor labs Hemorrhoids * Tucks pads PRN * PRN hydrocortisone cream History of COPD Asthma Emphysema of lung * Continue home respiratory medications * No acute concerns Current smoker * Nicotine patches * Cessation counseling * Offer nicotine patches on discharge Hypotension * No acute concerns * Monitor vital signs Hypothyroidism * No acute concerns * Not on any home medications Chronic constipation * No acute concerns Code status: Full code PCP: None DVT prohylaxis: GÓMEZ alexander Disposition: Patient admitted to medical floor on telemetry for management of Shiga toxin E. coli colitis. Length of stay likely 3 to 4 days.
[2021-05-06] MEDS ORDERED: Witch Hazel Medicated Pads 40/Jar TOP PRN (14:57)
[2021-05-06] MEDS ORDERED: Hydrocortisone 1% Crm 30 GM Tube TOP PRN (15:00)
[2021-05-07] MEDS: Lactated Ringers 1,000 ML IV SCH ×2 (04:39→11:18)
[2021-05-07] MEDS: Formoterol/Mometasone 200-5 MCG 8.8 GM Inhaler IH SCH ×2 (08:31→20:39)
[2021-05-07] MEDS: Albuterol 6.7 GM Inhaler INH PRN (08:31)
[2021-05-07] MEDS: Nicotine 14 MG/24 Hr Patch TRDERM SCH (08:39)
[2021-05-07] MEDS ORDERED: Magnesium Sulfate/Water 2 GM in Premix Bag 1 BAG IV ONE (09:00)
--- NOTE | 2021-05-07 09:10 | PCM.PN ---
- General Info Date of Service: 05/07/21 Admission Dx/Problem (Free Text): Admission Diagnosis/Problem Admission Diagnosis/Problem Colitis Functional Status: Reports: Pain Controlled, Tolerating Diet, Ambulating, Urinating. Denies: New Symptoms - Review of Systems General: Reports: No Symptoms. Denies: Fever, Weakness, Fatigue, Malaise, Chills HEENT: Reports: No Symptoms. Denies: Headaches, Sore Throat Pulmonary: Reports: No Symptoms. Denies: Shortness of Breath, Cough, Sputum, Wheezing Cardiovascular: Reports: No Symptoms. Denies: Chest Pain, Palpitations, Dyspnea on Exertion, Edema Gastrointestinal: Reports: Diarrhea (improving ). Denies: Abdominal Pain, Constipation, Hematochezia, Melena, Nausea Genitourinary: Reports: No Symptoms Musculoskeletal: Reports: No Symptoms Skin: Reports: No Symptoms Neurological: Reports: No Symptoms Psychiatric: Reports: No Symptoms - Patient Data Vitals - Most Recent: Last Vital Signs Temp 98.2 F 05/07/21 07:53 Pulse 46 L 05/07/21 07:53 Resp 16 05/07/21 07:53 BP 100/55 L 05/07/21 07:53 Pulse Ox 91 L 05/07/21 08:31 Weight - Most Recent: 152 lb 11.2 oz I&O - Last 24 Hours: Intake & Output 05/06/21 05/07/21 05/07/21 22:59 06:59 14:59 Intake Total 400 1800 Output Total 950 Balance -550 1800 Lab Results Last 24 Hours: Laboratory Results - last 24 hr 05/05/21 05/07/21 05/07/21 Range/Units 13:35 05:17 05:17 WBC 8.72 (4.23-9.07) K/mm3 RBC 4.05 L (4.63-6.08) M/mm3 Hgb 12.6 L (13.7-17.5) gm/dl Hct 38.6 L (40.1-51.0) % MCV 95.3 H (79.0-92.2) fl MCH 31.1 (25.7-32.2) pg MCHC 32.6 (32.2-35.5) g/dl RDW Std Deviation 46.1 H (35.1-43.9) fL Plt Count 177 (163-337) K/mm3 MPV 10.1 (9.4-12.3) fl Neut % (Auto) 69.1 H (34.0-67.9) % Lymph % (Auto) 17.5 L (21.8-53.1) % [place] % (Auto) 12.0 (5.3-12.2) % Eos % (Auto) 1.0 (0.8-7.0) Baso % (Auto) 0.3 (0.1-1.2) % Neut # (Auto) 6.01 H (1.78-5.38) K/mm3 Lymph # (Auto) 1.53 (1.32-3.57) K/mm3 [place] # (Auto) 1.05 H (0.30-0.82) K/mm3 Eos # (Auto) 0.09 (0.04-0.54) K/mm3 Baso # (Auto) 0.03 (0.01-0.08) K/mm3 Sodium 146 H (136-145) mEq/L Potassium 3.8 (3.5-5.1) mEq/L Chloride 110 H (98-107) mEq/L Carbon Dioxide 26 (21-32) mEq/L Anion Gap 13.8 (5-15) BUN 9 (7-18) mg/dL Creatinine 0.8 (0.7-1.3) mg/dL Est Cr Clr Drug Dosing 96.25 mL/min Estimated GFR (MDRD) > 60 (>60) mL/min BUN/Creatinine Ratio 11.3 L (14-18) Glucose 98 (70-99) mg/dL Calcium 8.2 L (8.5-10.1) mg/dL Magnesium 1.7 L (1.8-2.4) mg/dL C-Reactive Protein 5.1 H* (<1.0) mg/dL Stl C. cayetanensis PCR Not detected (Not Detected) Stool Rotavirus A PCR Not detected (Not Detected) Stool Astrovirus (PCR) Not detected (Not Detected) Stool Cryptosporidium PCR Not detected (Not Detected) St Sh/Enteroin Ecoli PCR Not detected (Not Detected) Stl Enterotoxigenic E PCR Not detected (Not Detected) Stl E. histolytica PCR Not detected (Not Detected) Stool Giardia Lamblia PCR Not detected (Not Detected) Stool Sapovirus (PCR) Not detected (Not Detected) Stl P. shigelloides PCR Not detected (Not Detected) St Y.enterocolitica PCR Not detected (Not Detected) Stool Vibrio (PCR) Not detected (Not Detected) Stl Vibrio cholerae PCR Not detected (Not Detected) Stl Enteroaggr Ecoli PCR Not detected (Not Detected) Adenovirus Types 40, 41 Not detected (Not Detected) Campylobacter (PCR) Not detected (Not Detected) C. difficile (PCR) Detected H (Not Detected) Escherichia coli 0157 Detected H (Not Detected) E.coli Shiga Toxins Detected H (Not Detected) Salmonella (PCR) Not detected (Not Detected) Stool Norovirus GI (PCR) Not detected (Not Detected) Morteza Results Last 24 Hours: Microbiology 05/05/21 13:35 Stool Culture - Preliminary Stool / Feces Probable Escherichia Coli 0157 Shiga Toxin I & II - Final 05/05/21 13:35 Clostridioides difficile Toxin Assay - Final Stool / Feces Med Orders - Current: Current Medications Albuterol (Albuterol 6.7 Gm Inhaler) 0 gm INH Q4HR PRN PRN Reason: Shortness of Breath Last Admin: 05/07/21 08:31 Dose: 2 puff Documented by: Hydrocortisone (Hydrocortisone 1% Crm 30 Gm Tube) 1 gm TOP BID PRN PRN Reason: Hemorrhoids Hydromorphone HCl (Hydromorphone 0.5 Mg/0.5 Ml Syringe) 0.5 mg IVPUSH Q1H PRN PRN Reason: Pain (severe 7-10) Lactated Ringer's (Ringers, Lactated) 1,000 mls @ 150 mls/hr IV ASDIRECTED [facility] Last Admin: 05/07/21 04:39 Dose: 150 mls/hr Documented by: Magnesium Sulfate 2 gm/ Premix 50 mls @ 25 mls/hr IV ONETIME ONE Stop: 05/07/21 10:59 Miscellaneous Information (Remove Nicotine Patch) 1 ea TRDERM DAILY [facility] Last Admin: 05/07/21 08:40 Dose: Not Given Documented by: Mometasone Furoate/Formoterol Fumar (Formoterol/Mometasone 200-5 Mcg 8.8 Gm Inhaler) 2 puff IH BID [facility] Last Admin: 05/07/21 08:31 Dose: 2 puff Documented by: Nicotine (Nicotine 14 Mg/24 Hr Patch) 14 mg TRDERM DAILY [facility] Last Admin: 05/07/21 08:39 Dose: Not Given Documented by: Ondansetron HCl (Ondansetron 4 Mg/2 Ml Sdv) 4 mg IVPUSH Q8H PRN PRN Reason: Nausea Sodium Chloride (Sodium Chloride 0.9% 10 Ml Syringe) 10 ml FLUSH ASDIRECTED PRN PRN Reason: Keep Vein Open Last Admin: 05/05/21 11:41 Dose: 10 ml Documented by: Wellington Canchola (Wellington Canchola Medicated Pads 40/Jar) 1 pad TOP ASDIRECTED PRN PRN Reason: Hemorrhoids Discontinued Medications Diatrizoate Meglum/Diatrizoate Sod (Diatrizoate Meglumine/Diatrizoate Sodium 37% 120 Ml Bottle) 120 ml PO ONETIME ONE Stop: 05/05/21 13:18 Last Admin: 05/05/21 14:14 Dose: 45 ml Documented by: Dicyclomine HCl (Dicyclomine 10 Mg Cap) 10 mg PO ONETIME ONE Stop: 05/05/21 11:43 Last Admin: 05/05/21 11:55 Dose: 10 mg Documented by: Heparin Sodium (Porcine) (Heparin Sodium 5,000 Units/Ml Vial) 5,000 units SUBCUT Q8H [facility] Last Admin: 05/06/21 07:33 Dose: 5,000 units Documented by: Sodium Chloride (Normal Saline) 1,000 mls @ 999 mls/hr IV ONETIME ONE Stop: 05/05/21 12:35 Last Admin: 05/05/21 11:40 Dose: 999 mls/hr Documented by: Lactated Ringer's (Ringers, Lactated) 1,000 mls @ 100 mls/hr IV ASDIRECTED [facility] Last Admin: 05/05/21 13:51 Dose: 100 mls/hr Documented by: Iopamidol (Iopamidol 612 Mg/Ml 100 Ml Bottle) 100 ml IVPUSH ONETIME ONE Stop: 05/05/21 13:18 Last Admin: 05/05/21 14:14 Dose: 100 ml Documented by: Non-Formulary Medication (Fluticasone/Vilanterol) 1 puff INH BID [facility] Last Admin: 05/05/21 20:45 Dose: 1 puff Documented by: Ondansetron HCl (Ondansetron 4 Mg/2 Ml Sdv) 4 mg IVPUSH ONETIME ONE Stop: 05/05/21 11:36 Last Admin: 05/05/21 11:41 Dose: 4 mg Documented by: Sodium Chloride (Sodium Chloride 0.9% 10 Ml Syringe) 10 ml FLUSH ONETIME PRN PRN Reason: IV FLUSH Last Admin: 05/05/21 14:15 Dose: 10 ml Documented by: Vancomycin HCl (Vancomycin 125 Mg Cap) 125 mg PO QID [facility] Last Admin: 05/06/21 08:41 Dose: 125 mg Documented by: - Exam Quality Assessment: DVT Prophylaxis. No: Supplemental Oxygen, Urine Catheter General: Alert, Oriented, Cooperative, No Acute Distress HEENT: Pupils Equal, Pupils Reactive, Mucous Membr. Moist/[place] Neck: Supple, Trachea Midline Lungs: Clear to Auscultation, Normal Respiratory Effort Cardiovascular: Regular Rate, Regular Rhythm GI/Abdominal Exam: Normal Bowel Sounds, Soft, Non-Tender, No Distention (Male) Exam: Deferred Back Exam: Normal Inspection, Full Range of Motion Extremities: Normal Inspection, Normal Range of Motion, Non-Tender, No Pedal Edema, Normal Capillary Refill Peripheral Pulses: 2+: Radial (L), Radial (R), Dorsalis Pedis (L), Dorsalis Pedis (R) Skin: Warm, Dry, Intact Neurological: No New Focal Deficit Psy/Mental Status: Alert, Normal Affect, Normal Mood - Patient Data Lab Results Last 24 hrs: Laboratory Results - last 24 hr 05/05/21 05/07/21 05/07/21 Range/Units 13:35 05:17 05:17 WBC 8.72 (4.23-9.07) K/mm3 RBC 4.05 L (4.63-6.08) M/mm3 Hgb 12.6 L (13.7-17.5) gm/dl Hct 38.6 L (40.1-51.0) % MCV 95.3 H (79.0-92.2) fl MCH 31.1 (25.7-32.2) pg MCHC 32.6 (32.2-35.5) g/dl RDW Std Deviation 46.1 H (35.1-43.9) fL Plt Count 177 (163-337) K/mm3 MPV 10.1 (9.4-12.3) fl Neut % (Auto) 69.1 H (34.0-67.9) % Lymph % (Auto) 17.5 L (21.8-53.1) % [place] % (Auto) 12.0 (5.3-12.2) % Eos % (Auto) 1.0 (0.8-7.0) Baso % (Auto) 0.3 (0.1-1.2) % Neut # (Auto) 6.01 H (1.78-5.38) K/mm3 Lymph # (Auto) 1.53 (1.32-3.57) K/mm3 [place] # (Auto) 1.05 H (0.30-0.82) K/mm3 Eos # (Auto) 0.09 (0.04-0.54) K/mm3 Baso # (Auto) 0.03 (0.01-0.08) K/mm3 Sodium 146 H (136-145) mEq/L Potassium 3.8 (3.5-5.1) mEq/L Chloride 110 H (98-107) mEq/L Carbon Dioxide 26 (21-32) mEq/L Anion Gap 13.8 (5-15) BUN 9 (7-18) mg/dL Creatinine 0.8 (0.7-1.3) mg/dL Est Cr Clr Drug Dosing 96.25 mL/min Estimated GFR (MDRD) > 60 (>60) mL/min BUN/Creatinine Ratio 11.3 L (14-18) Glucose 98 (70-99) mg/dL Calcium 8.2 L (8.5-10.1) mg/dL Magnesium 1.7 L (1.8-2.4) mg/dL C-Reactive Protein 5.1 H* (<1.0) mg/dL Stl C. cayetanensis PCR Not detected (Not Detected) Stool Rotavirus A PCR Not detected (Not Detected) Stool Astrovirus (PCR) Not detected (Not Detected) Stool Cryptosporidium PCR Not detected (Not Detected) St Sh/Enteroin Ecoli PCR Not detected (Not Detected) Stl Enterotoxigenic E PCR Not detected (Not Detected) Stl E. histolytica PCR Not detected (Not Detected) Stool Giardia Lamblia PCR Not detected (Not Detected) Stool Sapovirus (PCR) Not detected (Not Detected) Stl P. shigelloides PCR Not detected (Not Detected) St Y.enterocolitica PCR Not detected (Not Detected) Stool Vibrio (PCR) Not detected (Not Detected) Stl Vibrio cholerae PCR Not detected (Not Detected) Stl Enteroaggr Ecoli PCR Not detected (Not Detected) Adenovirus Types 40, 41 Not detected (Not Detected) Campylobacter (PCR) Not detected (Not Detected) C. difficile (PCR) Detected H (Not Detected) Escherichia coli 0157 Detected H (Not Detected) E.coli Shiga Toxins Detected H (Not Detected) Salmonella (PCR) Not detected (Not Detected) Stool Norovirus GI (PCR) Not detected (Not Detected) Result Diagrams: 05/07/21 05:17 05/07/21 05:17 Morteza Results Last 24 hrs: Microbiology 05/05/21 13:35 Stool Culture - Preliminary Stool / Feces Probable Escherichia Coli 0157 Shiga Toxin I & II - Final 05/05/21 13:35 Clostridioides difficile Toxin Assay - Final Stool / Feces Sepsis Event Note - Evaluation Sepsis Screening Result: No Definite Risk - Focused Exam Vital Signs: Vital Signs Temp Pulse Resp BP Pulse Ox Pulse Ox 05/07/21 08:31 91 L 05/07/21 07:53 98.2 F 46 L 16 100/55 L 93 L 05/07/21 04:55 98.2 F 60 16 103/49 L 94 L - Problem List & Annotations (1) History of COPD SNOMED Code(s): 720807260 Code(s): Z87.09 - PERSONAL HISTORY OF OTHER DISEASES OF THE RESPIRATORY SYSTEM Status: Chronic Priority: Low Current Visit: No (2) Bloody diarrhea SNOMED Code(s): 76380764 Code(s): R19.7 - DIARRHEA, UNSPECIFIED Status: Acute Priority: High Current Visit: Yes (3) Clostridium difficile carrier SNOMED Code(s): 303169050 Code(s): Z22.1 - CARRIER OF OTHER INTESTINAL INFECTIOUS DISEASES Status: Ac zena Priority: Low Current Visit: Yes (4) Infection due to Escherichia coli serogroup O157 SNOMED Code(s): 391766990687448 Code(s): A49.8 - OTHER BACTERIAL INFECTIONS OF UNSPECIFIED SITE Status: Acute Priority: High Current Visit: Yes (5) Colitis SNOMED Code(s): 87714736 Code(s): K52.9 - NONINFECTIVE GASTROENTERITIS AND COLITIS, UNSPECIFIED Status: Acute Priority: High Current Visit: Yes (6) Hypotension SNOMED Code(s): 18391586 Code(s): I95.9 - HYPOTENSION, UNSPECIFIED Status: Chronic Priority: Low Current Visit: No Qualifiers: Hypotension type: unspecified hypotension type Qualified Code(s): I95.9 - Hypotension, unspecified (7) Hypothyroidism SNOMED Code(s): 63837496 Code(s): E03.9 - HYPOTHYROIDISM, UNSPECIFIED Status: Chronic Priority: Low Current Visit: No Qualifiers: Hypothyroidism type: unspecified Qualified Code(s): E03.9 - Hypothyroidism, unspecified (8) Asthma SNOMED Code(s): 198333376 Code(s): J45.909 - UNSPECIFIED ASTHMA, UNCOMPLICATED Status: Chronic Priority: Medium Current Visit: No Qualifiers: Asthma severity: unspecified severity Asthma persistence: unspecified Asthma complication type: unspecified Qualified Code(s): J45.909 - Unspecified asthma, uncomplicated (9) Chronic constipation SNOMED Code(s): 978427870 Code(s): K59.09 - OTHER CONSTIPATION Status: Chronic Priority: Low Current Visit: No (10) Emphysema of lung SNOMED Code(s): 50967115 Code(s): J43.9 - EMPHYSEMA, UNSPECIFIED Status: Chronic Priority: Medium Current Visit: No Qualifiers: Emphysema type: unspecified Qualified Code(s): J43.9 - Emphysema, unspecified (11) Current smoker SNOMED Code(s): 17503424 Code(s): F17.200 - NICOTINE DEPENDENCE, UNSPECIFIED, UNCOMPLICATED Status: Chronic Priority: Medium Current Visit: Yes (12) Leukocytosis SNOMED Code(s): 403883923, 492462981 Code(s): D72.829 - ELEVATED WHITE BLOOD CELL COUNT, UNSPECIFIED Status: Ac zena Priority: High Current Visit: Yes Qualifiers: Leukocytosis type: unspecified Qualified Code(s): D72.829 - Elevated white blood cell count, unspecified (13) Hemorrhoids SNOMED Code(s): 29133953 Code(s): K64.9 - UNSPECIFIED HEMORRHOIDS Status: Chronic Priority: Medium Current Visit: Yes Qualifiers: Hemorrhoid type: unspecified Qualified Code(s): K64.9 - Unspecified hemorrh oids (14) Hypomagnesemia SNOMED Code(s): 094649492 Code(s): E83.42 - HYPOMAGNESEMIA Status: Acute Priority: High Current Visit: Yes - Problem List Review Problem List Initiated/Reviewed/Updated: Yes - My Orders Last 24 Hours: My Active Orders 05/06/21 Lunch Clear Liquid Diet [DIET] 05/06/21 13:48 Antiembolic Devices [RC] PER UNIT ROUTINE GÓMEZ Hose [Antiembolic Hose] [OM.PC] Routine 05/06/21 13:49 Patient Status [ADT] Routine 05/06/21 14:57 witch Clifford [Tucks] 1 pad TOP ASDIRECTED PRN 05/06/21 15:00 Hydrocortisone [Hydrocortisone 1% Crm] 1 gm TOP BID PRN 05/07/21 09:00 Magnesium Sulfate/Water [Magnesium Sulfate in Water 2 GM/50 ML] 2 gm Premix Bag 1 bag IV ONETIME 05/08/21 05:11 BASIC METABOLIC PANEL,BMP [CHEM] AM CBC WITH AUTO DIFF [HEME] AM CRP [C-REACTIVE PROTEIN] [CHEM] AM MAGNESIUM [CHEM] AM 05/09/21 05:11 BASIC METABOLIC PANEL,BMP [CHEM] AM CBC WITH AUTO DIFF [HEME] AM CRP [C-REACTIVE PROTEIN] [CHEM] AM MAGNESIUM [CHEM] AM 05/10/21 05:11 BASIC METABOLIC PANEL,BMP [CHEM] AM CBC WITH AUTO DIFF [HEME] AM CRP [C-REACTIVE PROTEIN] [CHEM] AM MAGNESIUM [CHEM] AM - Assessment Assessment:: Assessment - day of admission 05/05/2021 This is a 60M with PMHx of COPD presenting with crampy abdominal pain; blood diarrhea. CT AP showing diffuse colitis; noted to have positive c diff. Assessment 1. C diff colitis 2. Hx of COPD 3. 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 Patient was on a trip to [place] for a family vacation in which several family members have since fallen ill with E. coli 0157. Several family members are also hospitalized here. Patient reports abdominal cramping that started on this past 05/04/2021. This progressed to watery diarrhea and lisa bloody stools. He was also complaining of nausea but denies any infectious symptoms such as fever, chills, cough, shortness of breath, headache, sore throat. Patient went to the clinic in [place] where a stool sample was obtained but showed 12 cc of gross blood and no stool was noted. He is a pack-a-day smoker for 45 years and also reportedly smokes occasional marijuana. Patient was admitted to the floor on telemetry and this will be discontinued today as patient has been very stable. Initially C. difficile screen was positive and patient was started on oral vancomycin. Stool culture has not shown any C. difficile infection and this will be discontinued. It is likely that the patient is a carrier but does not have an active C. difficile infection. Stool culture has however returned positive for E. coli 0157 which is a Shiga toxin producing E. coli. We will therefore discontinue all antibiotics. Patient has been receiving IV fluids and these will continue. Pain medications as ordered. Patient reports improving bloody diarrhea which has since become more yellow in nature. States he feels quite a bit better but is still having mild abdominal pain. We will therefore advance diet to clear liquids as the patient tolerates. Labs today show WBC of 13.13. Hemoglobin 13.5. Platelet 216,000. Neutrophils are elevated at 70.3%. Sodium is slightly elevated at 146. Potassium 4.0. Carbon dioxide 25. Anion gap is 15.0. BUN is 13. Creatinine 0.9. GFR greater than 60. Glucose is 91. Calcium 8.4. Bilirubin 0.7. AST is 11, ALT 19, alkaline phosphatase 87. Protein 6.0. Albumin 3.1. We will continue current treatment and advance diet as tolerated. Patient also complaining of significant hemorrhoids which are chronic for him but have been worse with his bloody diarrhea. Will order as needed Tucks pads and as needed hydrocortisone cream for this. Length of stay likely 1-2 more days pending symptom improvement. 05/07/2021 60-year-old male admitted due to abdominal pain and bloody diarrhea. Found to be E. coli 0157 positive. Today the patient reports that he feels much better. Diarrhea has greatly improved and he has had no signs of any hematochezia. WBC is down to 8.72. Hemoglobin 12.6. Platelet 177,000. Sodium is stable at 146. Potassium 3.8. Chloride 110. Carbon oxide 26. Anion gap 13.8. BUN is 9. Creatinine 0.8. GFR greater than 60. Glucose 98. Calcium 8.2. Magnesium 1.7. CRP 5.1. Magnesium was supplemented. Diet was advanced to full liquids for lunch. We will see how this does and advanced patient's diet as tolerated. Likely discharge tonight versus tomorrow morning. - Plan Plan:: Leukocytosis Bloody diarrhea Clostridium difficile carrier Infection due to Escherichia coli serogroup O157 Colitis * IV fluids as ordered * Advance to full liquid diet today * Pain medications as ordered * Antiemetics as ordered * Enteric isolation * Monitor labs Hypomagnesemia * Supplement * Monitor Hemorrhoids * Tucks pads PRN * PRN hydrocortisone cream History of COPD Asthma Emphysema of lung * Continue home respiratory medications * No acute concerns Current smoker * Nicotine patches * Cessation counseling * Offer nicotine patches on discharge Hypotension * No acute concerns * Monitor vital signs Hypothyroidism * No acute concerns * Not on any home medications Chronic constipation * No acute concerns Code status: Full code PCP: None DVT prohylaxis: GÓMEZ alexander Disposition: Patient admitted to medical floor on telemetry for management of Shiga toxin E. coli colitis. Length of stay likely 3 to 4 days.
[2021-05-07 18:39] VITALS: BP 108/52; PULSE 61
--- NOTE | 2021-05-08 09:40 | PCM.DCSUM1 ---
Discharge Summary - Hospital Course HPI Initial Comments: This is a 60M with PMhx noted below presenting for abdominal pain. The patient has had several family members admitted over the last two days for bloody diarrhea; with some family members testing positive for shiga toxin ecoli colitis. The patient was at [facility] and consumed hamburger meat. Over the last 2 days he has had crampy abdominal pain. He has had blood diarrhea. He denies fever, chest pain, sob. he endorses nausea. In the ED sepsis protocol was initiated. He was given IVF. Subsequent testing notable for C diff. CT AP showing findings consistent with diffuse colitis. 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 SNOMED Code(s): 690155327 ICD Code: Z22.1 - CARRIER OF OTHER INTESTINAL INFECTIOUS DISEASES Status: Acute Priority: Low (4) Infection due to Escherichia coli serogroup O157 SNOMED Code(s): 876653939081709 ICD Code: A49.8 - OTHER BACTERIAL INFECTIONS OF UNSPECIFIED SITE Status: Acute Priority: High (5) Colitis SNOMED Code(s): 20091355 ICD Code: K52.9 - NONINFECTIVE GASTROENTERITIS AND COLITIS, UNSPECIFIED Status: Acute Priority: High (6) Hypotension SNOMED Code(s): 20663223 ICD Code: I95.9 - HYPOTENSION, UNSPECIFIED Status: Chronic Priority: Low Qualifiers: Hypotension type: unspecified hypotension type Qualified Code(s): I95.9 - Hypotension, unspecified (7) Hypothyroidism SNOMED Code(s): 36175417 ICD Code: E03.9 - HYPOTHYROIDISM, UNSPECIFIED Status: Chronic Priority: Low Qualifiers: Hypothyroidism type: unspecified Qualified Code(s): E03.9 - Hypothyroidism, unspecified (8) Asthma SNOMED Code(s): 397682659 ICD Code: J45.909 - UNSPECIFIED ASTHMA, UNCOMPLICATED Status: Chronic Priority: Medium Qualifiers: Asthma severity: unspecified severity Asthma persistence: unspecified Asthma complication type: unspecified Qualified Code(s): J45.909 - Unspecified asthma, uncomplicated (9) Chronic constipation SNOMED Code(s): 667851701 ICD Code: K59.09 - OTHER CONSTIPATION Status: Chronic Priority: Low (10) Emphysema of lung SNOMED Code(s): 27254305 ICD Code: J43.9 - EMPHYSEMA, UNSPECIFIED Status: Chronic Priority: Medium Qualifiers: Emphysema type: unspecified Qualified Code(s): J43.9 - Emphysema, unspecified (11) Current smoker SNOMED Code(s): 19424897 ICD Code: F17.200 - NICOTINE DEPENDENCE, UNSPECIFIED, UNCOMPLICATED Status: Chronic Priority: Medium (12) Leukocytosis SNOMED Code(s): 031882391, 424921221 ICD Code: D72.829 - ELEVATED WHITE BLOOD CELL COUNT, UNSPECIFIED Status: Acute Priority: High Qualifiers: Leukocytosis type: unspecified Qualified Code(s): D72.829 - Elevated white blood cell count, unspecified (13) Hemorrhoids SNOMED Code(s): 90984329 ICD Code: K64.9 - UNSPECIFIED HEMORRHOIDS Status: Chronic Priority: Medium Qualifiers: Hemorrhoid type: unspecified Qualified Code(s): K64.9 - Unspecified hemorrhoids (14) Hypomagnesemia SNOMED Code(s): 981663180 ICD Code: E83.42 - HYPOMAGNESEMIA Status: Acute Priority: High - Patient Summary/Data Labs Pending at D/C: None Recommended Follow-up Testing/Procedures: Follow-up with primary care provider within 5-7 days of discharge, sooner if needed -Recommend repeat CBC, CMP, and magnesium at discharge. Hospital Course: This is a 60-year-old male who presents to ED on 05/05/2021 with vomiting, bloody stools, nausea, and abdominal cramps. Patient was on a trip to [place] for a family vacation in which several family members have since fallen ill with E. coli 0157. Several family members are also hospitalized here and throughout several hospitals in the region.. Patient reports abdominal cramping that started on this past 05/04/2021. This progressed to watery diarrhea and lisa bloody stools. He was also complaining of nausea but denies any infectious symptoms such as fever, chills, cough, shortness of breath, headache, sore throat. Patient went to the clinic in [place] where a stool sample was obtained but showed 12 cc of gross blood and no stool was noted. He is a pack-a-day smoker for 45 years and also reportedly smokes occasional marijuana. Patient was admitted to the floor on telemetry. Initially C. difficile screen was positive and patient was started on oral vancomycin. Stool culture has not shown any C. difficile infection and C. difficile toxin immunoassay was negative.. It is likely that the patient is a carrier but does not have an active C. difficile infection. Stool culture has however returned positive for E. coli 0157 which is a Shiga toxin producing E. coli. Stool O&P was negative. All antibiotics were discontinued and patient was placed n.p.o. with IV fluids. Throughout his stay he rapidly improved. Leukocytosis resolved and CRP decreased. His abdominal pain resolved and his diarrhea did greatly improve. His hematochezia did resolve as well. Diet was advanced and he was able to eat a regular diet without difficulty. He was reporting hemorrhoidal pain, which he states has been an ongoing issue for him. He was provided Tucks pads and hydrocortisone cream during his stay, which did improve his symptoms. He was discharged home on the evening of 05/07/2021. Instructed to follow-up with his primary care provider within 5 to 7 days of discharge, sooner if needed. Recommend repeat CBC, CMP, and magnesium at that visit. Patient was provided nicotine patches while here but refused these on discharge. We did discuss smoking cessation while here. All home medications were resumed and no new medications were prescribed upon discharge. He was instructed to take it easy with his diet and avoid spicy and fatty foods for now. Discharged home. - Patient Instructions Diet: Usual Diet as Tolerated Activity: As Tolerated Showering/Bathing: May Shower in 3 Days Notify Provider of: Fever, Increased Pain, Nausea and/or Vomiting - Discharge Plan *PRESCRIPTION DRUG MONITORING PROGRAM REVIEWED*: No *COPY OF PRESCRIPTION DRUG MONITORING REPORT IN PATIENT [place]EN[place]: No Tobacco Cessation Medication: Prescription Refused Home Medications: Home Meds Albuterol [Proair HFA] 1 puff INH Q4HR PRN 09/05/16 [History] Fluticasone/Vilanterol [Breo Ellipta 200-25 MCG Inhalation Kit] 1 puff INH BID 09/05/16 [History] Ascorbic Acid [Vitamin C] 500 mg PO DAILY 05/05/21 [History] L.acidoph,Paracasei, B.lactis [Probiotic] 1 tab PO DAILY 05/05/21 [History] Multivitamin 1 tab PO DAILY 05/05/21 [History] Oxygen Therapy Mode: Room Air Patient Handouts: What You Need to Know About Marijuana Use, Colitis, Steps to Quit Smoking Referrals: Loreta Lewis PA [Ordering Only Provider] - 05/13/21 9:30 am (come 10 minutes prior to the appointment to register.) - Discharge Summary/Plan Comment DC Time >30 min.: No - General Info Date of Service: 05/07/21 Admission Dx/Problem (Free Text: Admission Diagnosis/Problem Admission Diagnosis/Problem Colitis Functional Status: Reports: Pain Controlled, Tolerating Diet, Ambulating, Urinating. Denies: New Symptoms - Review of Systems General: Reports: No Symptoms. Denies: Fever, Weakness, Fatigue, Malaise HEENT: Reports: No Symptoms. Denies: Headaches, Sore Throat Pulmonary: Reports: No Symptoms. Denies: Shortness of Breath, Cough, Wheezing Cardiovascular: Reports: No Symptoms. Denies: Chest Pain, Palpitations, Edema Gastrointestinal: Reports: Diarrhea (greatly improved ). Denies: Abdominal Pain, Constipation, Hematochezia, Melena, Nausea, Vomiting Genitourinary: Reports: No Symptoms. Denies: Pain Musculoskeletal: Reports: No Symptoms Skin: Reports: No Symptoms. Denies: Cyanosis Neurological: Reports: No Symptoms. Denies: Confusion, Pre-Existing Deficit, Difficulty Walking, Gait Disturbance Psychiatric: Reports: No Symptoms - Patient Data Vitals - Most Recent: Last Vital Signs Temp 98.1 F 05/07/21 17:28 Pulse 61 05/07/21 17:28 Resp 20 05/07/21 17:28 BP 108/52 L 05/07/21 17:28 Pulse Ox 92 L 05/07/21 17:28 Weight - Most Recent: 152 lb 11.2 oz I&O - Last 24 hours: Intake & Output 05/07/21 05/08/21 05/08/21 22:59 06:59 14:59 Intake Total 1120 Balance 1120 Lab Results - Last 24 hrs: Laboratory Results - last 24 hr 05/05/21 Range/Units 13:35 Stool EPEC (PCR) Not Reportable Med Orders - Current: Current Medications Discontinued Medications Albuterol (Albuterol 6.7 Gm Inhaler) 0 gm INH Q4HR PRN PRN Reason: Shortness of Breath Last Admin: 05/07/21 08:31 Dose: 2 puff Documented by: Diatrizoate Meglum/Diatrizoate Sod (Diatrizoate Meglumine/Diatrizoate Sodium 37% 120 Ml Bottle) 120 ml PO ONETIME ONE Stop: 05/05/21 13:18 Last Admin: 05/05/21 14:14 Dose: 45 ml Documented by: Dicyclomine HCl (Dicyclomine 10 Mg Cap) 10 mg PO ONETIME ONE Stop: 05/05/21 11:43 Last Admin: 05/05/21 11:55 Dose: 10 mg Documented by: Heparin Sodium (Porcine) (Heparin Sodium 5,000 Units/Ml Vial) 5,000 units SUBCUT Q8H [facility] Last Admin: 05/06/21 07:33 Dose: 5,000 units Documented by: Hydrocortisone (Hydrocortisone 1% Crm 30 Gm Tube) 1 gm TOP BID PRN PRN Reason: Hemorrhoids Hydromorphone HCl (Hydromorphone 0.5 Mg/0.5 Ml Syringe) 0.5 mg IVPUSH Q1H PRN PRN Reason: Pain (severe 7-10) Sodium Chloride (Normal Saline) 1,000 mls @ 999 mls/hr IV ONETIME ONE Stop: 05/05/21 12:35 Last Admin: 05/05/21 11:40 Dose: 999 mls/hr Documented by: Lactated Ringer's (Ringers, Lactated) 1,000 mls @ 100 mls/hr IV ASDIRECTED [facility] Last Admin: 05/05/21 13:51 Dose: 100 mls/hr Documented by: Lactated Ringer's (Ringers, Lactated) 1,000 mls @ 150 mls/hr IV ASDIRECTED [facility] Last Admin: 05/07/21 11:18 Dose: 150 mls/hr Documented by: Magnesium Sulfate 2 gm/ Premix 50 mls @ 25 mls/hr IV ONETIME ONE Stop: 05/07/21 10:59 Last Admin: 05/07/21 09:10 Dose: 25 mls/hr Documented by: Iopamidol (Iopamidol 612 Mg/Ml 100 Ml Bottle) 100 ml IVPUSH ONETIME ONE Stop: 05/05/21 13:18 Last Admin: 05/05/21 14:14 Dose: 100 ml Documented by: Miscellaneous Information (Remove Nicotine Patch) 1 ea TRDERM DAILY [facility] Last Admin: 05/07/21 08:40 Dose: Not Given Documented by: Mometasone Furoate/Formoterol Fumar (Formoterol/Mometasone 200-5 Mcg 8.8 Gm Inhaler) 2 puff IH BID [facility] Last Admin: 05/07/21 20:39 Dose: Not Given Documented by: Nicotine (Nicotine 14 Mg/24 Hr Patch) 14 mg TRDERM DAILY [facility] Last Admin: 05/07/21 08:39 Dose: Not Given Documented by: Non-Formulary Medication (Fluticasone/Vilanterol) 1 puff INH BID [facility] Last Admin: 05/05/21 20:45 Dose: 1 puff Documented by: Ondansetron HCl (Ondansetron 4 Mg/2 Ml Sdv) 4 mg IVPUSH ONETIME ONE Stop: 05/05/21 11:36 Last Admin: 05/05/21 11:41 Dose: 4 mg Documented by: Ondansetron HCl (Ondansetron 4 Mg/2 Ml Sdv) 4 mg IVPUSH Q8H PRN PRN Reason: Nausea Sodium Chloride (Sodium Chloride 0.9% 10 Ml Syringe) 10 ml FLUSH ASDIRECTED PRN PRN Reason: Keep Vein Open Last Admin: 05/05/21 11:41 Dose: 10 ml Documented by: Sodium Chloride (Sodium Chloride 0.9% 10 Ml Syringe) 10 ml FLUSH ONETIME PRN PRN Reason: IV FLUSH Last Admin: 05/05/21 14:15 Dose: 10 ml Documented by: Vancomycin HCl (Vancomycin 125 Mg Cap) 125 mg PO QID [facility] Last Admin: 05/06/21 08:41 Dose: 125 mg Documented by: Wellington Canchola (Wellington Canchola Medicated Pads 40/Jar) 1 pad TOP ASDIRECTED PRN PRN Reason: Hemorrhoids - Exam Quality Assessment: Reports: DVT Prophylaxis. Denies: Supplemental Oxygen, Urine Catheter General: Reports: Alert, Oriented, Cooperative, No Acute Distress HEENT: Reports: Pupils Equal, Pupils Reactive, Mucous Membr. Moist/[place] Neck: Reports: Supple, Trachea Midline Lungs: Reports: Clear to Auscultation, Normal Respiratory Effort Cardiovascular: Reports: Regular Rate, Regular Rhythm GI/Abdominal Exam: Normal Bowel Sounds, Soft, Non-Tender, No Distention (Male) Exam: Deferred Rectal (Males) Exam: Deferred Back Exam: Reports: Normal Inspection, Full Range of Motion Extremities: Normal Inspection, Normal Range of Motion, Non-Tender, No Pedal Edema, Normal Capillary Refill Skin: Reports: Warm, Dry, Intact Neurological: Reports: No New Focal Deficit Psy/Mental Status: Reports: Alert, Normal Affect, Normal Mood
== END 2021-05-07 20:25 | disposition home or self-care (01) | DRG 373 ==
LOC: JD.ED 11:03 → JD.MS 14:55
PROVIDERS: ADMIT Hospitalist; ATTEND Hospitalist
DX: A04.3 Enterohemorrhagic Escherichia coli infection (principal); I95.9 Hypotension, unspecified; B96.21 Shiga toxin-producing Escherichia coli [E. coli] [STEC] O157 as the cause of diseases classified elsewhere; E03.9 Hypothyroidism, unspecified; J43.9 Emphysema, unspecified; K59.09 Other constipation; F17.210 Nicotine dependence, cigarettes, uncomplicated; K64.9 Unspecified hemorrhoids; E83.42 Hypomagnesemia; Z79.899 Other long term (current) drug therapy; Z88.5 Allergy status to narcotic agent; J30.9 Allergic rhinitis, unspecified; Z90.49 Acquired absence of other specified parts of digestive tract; Z98.890 Other specified postprocedural states; Z22.1 Carrier of other intestinal infectious diseases; Z87.09 Personal history of other diseases of the respiratory system; Z20.822 Contact with and (suspected) exposure to COVID-19
CPT/HCPCS: 36415; 74177; 74177-26; 80048; 80053; 81003; 82947; 83605; 83735; 85025; 86140; 87045; 87046; 87324; 87493; 87505; 87507; 87899; 94640; 94760; 94761; 96374; 99222; 99233; 99238; 99285; 99285-25; A9270-GY; J1644; J2405; J3475; J7030; J7120; Q9963; Q9967; U0002